=== PATIENT | male | born 1940 | race Caucasian/White ===

== ENCOUNTER → 2023-12-09 10:06 | Outpatient (REF) | payer MEDICARE, BC, SELFPAY | LOC: MRI 3T 10:06 | PROVIDERS: ATTENDING PHYSICIAN Internal Medicine Hematology & Oncology; FAMILY PHYSICIAN Family Medicine | DX: C34.32 Malignant neoplasm of lower lobe, left bronchus or lung (principal); R53.82 Chronic fatigue, unspecified | CPT/HCPCS: 70553; A9575 ==

== ENCOUNTER → 2023-12-10 08:30 | Outpatient (REF) | payer MEDICARE, BC, SELFPAY ==
[2023-12-10 09:07] VITALS: BP 151/76; BP_SYST 71
[2023-12-10] MEDS: ANCEF 10 IV (09:50)
[2023-12-10 11:01] VITALS: BP 147/75
== END ==
LOC: RADI 08:30
PROVIDERS: ATTENDING PHYSICIAN Internal Medicine Hematology & Oncology; FAMILY PHYSICIAN Family Medicine
DX: C34.32 Malignant neoplasm of lower lobe, left bronchus or lung (principal)
CPT/HCPCS: 36561; 76937; 77001; 99152; 99153; C1788

== ENCOUNTER → 2023-12-14 14:00 | Outpatient (REF) | payer MEDICARE, BC, SELFPAY ==
[2023-12-14 14:26] LABS: % Basophils 0.4 % (0-2); % Eosinophils 4.1 % (0-6); % Immature Granulocytes 0.3 % (0-0.5); % Lymphocytes 25.9 % (20.5-51.1); % Monocytes 7.7 % (1.7-9.3); % Neutrophils 61.6 % (42.2-75.2); Absolute Eosinophils 0.3 10^3/uL (0-0.7); Absolute Lymphocytes 1.8 10^3/uL (1.2-3.4); Absolute Monocytes 0.5 10^3/uL (0.1-0.6); Absolute Neutrophils 4.2 10^3/uL (1.4-6.5); Hematocrit 39.4 % (39.0-52.0); Hemoglobin 13.4 g/dL (13.0-18.0); Mean Corpuscular Hgb 31.4 pg (27.0-31.0); Mean Corpuscular Volume 92.3 fL (80.0-94.0); Mean Platelet Volume 10.4 fL (7.4-10.4); Nucleated Red Blood Cells % 0 % (-); Platelet Count 141 10^3/uL (130-400); Red Blood Cell Count 4.27 10^6/uL (4.70-6.10); White Blood Cell Count 6.8 10^3/uL (4.8-10.8)
[2023-12-14 14:38] LABS: ALT (SGPT) 21 U/L (0-50); AST (SGOT) 26 U/L (17-59); Albumin 4.2 g/dl (3.5-5.0); Alkaline Phosphatase 94 U/L (38-126); Blood Urea Nitrogen 26 mg/dl (9-20); Calcium 9.2 mg/dl (8.4-10.2); Carbon Dioxide 29 mmol/L (22-30); Chloride 103 mmol/L (98-107); Glucose 149 mg/dl (70-99); Potassium 4.8 mmol/L (3.5-5.1); Sodium 137 mmol/L (135-145); Total Protein 6.8 g/dl (6.3-8.2); eGFR > 60.00
== END ==
LOC: REG 14:00
PROVIDERS: ATTENDING PHYSICIAN Internal Medicine Hematology & Oncology; FAMILY PHYSICIAN Family Medicine
DX: C34.32 Malignant neoplasm of lower lobe, left bronchus or lung (principal); R53.82 Chronic fatigue, unspecified
CPT/HCPCS: 36415; 80053; 85025

== ENCOUNTER → 2024-01-25 15:52 | Outpatient (REF) | payer MEDICARE, BC, SELFPAY ==
[2024-01-25 12:35] LABS: % Basophils 0.7 % (0-2); % Eosinophils 1.8 % (0-6); % Immature Granulocytes 2.1 % (0-0.5); % Lymphocytes 30.3 % (20.5-51.1); % Monocytes 13.6 % (1.7-9.3); % Neutrophils 51.5 % (42.2-75.2); Absolute Eosinophils 0.1 10^3/uL (0-0.7); Absolute Immature Granulocytes 0.1 10^3/uL (0-0.05); Absolute Lymphocytes 1.3 10^3/uL (1.2-3.4); Absolute Monocytes 0.6 10^3/uL (0.1-0.6); Absolute Neutrophils 2.2 10^3/uL (1.4-6.5); Hematocrit 33.9 % (39.0-52.0); Hemoglobin 11.5 g/dL (13.0-18.0); Mean Corp Hgb Conc. 33.9 g/dL (33.0-37.0); Mean Corpuscular Volume 91.4 fL (80.0-94.0); Mean Platelet Volume 9.9 fL (7.4-10.4); Nucleated Red Blood Cells % 0 % (-); Platelet Count 182 10^3/uL (130-400); Red Blood Cell Count 3.71 10^6/uL (4.70-6.10); Red Cell Dist. Width 14.5 % (11.5-14.5); White Blood Cell Count 4.3 10^3/uL (4.8-10.8)
[2024-01-25 13:02] LABS: ALT (SGPT) 29 U/L (0-50); AST (SGOT) 26 U/L (17-59); Alkaline Phosphatase 116 U/L (38-126); Blood Urea Nitrogen 17 mg/dl (9-20); Calcium 9.1 mg/dl (8.4-10.2); Carbon Dioxide 25 mmol/L (22-30); Chloride 99 mmol/L (98-107); Glucose 226 mg/dl (70-99); Potassium 4.2 mmol/L (3.5-5.1); Sodium 132 mmol/L (135-145); Total Bilirubin 0.7 mg/dl (0.2-1.3); Total Protein 6.4 g/dl (6.3-8.2); eGFR > 60.00
== END ==
LOC: OIDL 15:52
PROVIDERS: ATTENDING PHYSICIAN Nurse Practitioner Adult Health
DX: C34.32 Malignant neoplasm of lower lobe, left bronchus or lung (principal)
CPT/HCPCS: 80053; 85025

== ENCOUNTER 2024-03-22 12:07 | Emergency (ER) | payer MEDICARE, BC, SELFPAY ==
[2024-03-22 12:21] VITALS: BP 116/48
--- NOTE | 2024-03-22 14:07 | ED.GENMED ---
Addendum entered and electronically signed by Estuardo Hairston PA-C 03/24/24 07:11:
Urine culture growing demonstrates greater than 100,000 colony-forming units of 2 strains of gram-negative bacilli. Patient placed on Keflex. Sensitivities pending
Original Note:
History of Present Illness
General
Chief Complaint: Anal/Rectal Problem
Source: patient
Exam Limitations: none
Time Seen by Provider: 03/22/24 13:40
Nursing documentation reviewed up to this point in time: agreed with
Travel History
Have you had any contact with someone who has COVID-19?: No
Do you have any symptoms of coronavirus? Fever > 100 degrees, chills, cough, shortness of breath, sore throat, loss of taste or smell, muscle aches, or headache?: No
History of Present Illness
History of Present Illness:
Patient to ED with complaint of rectal pain. Pain started over the weekend and continues to worsen. States he fells like there is a lump there. Using prep H without relief. Reports diarrhea yesterday. No BM today. Brought to ED by spouse for
eval.
Past History
Past History
ED Past Medical History: Cancer (Lung cancer), HTN, Hypercholesterolemia and NIDDM
ED Past Surgical History: Orthopedic and Other (Lung resection)
Social History
Tobacco: Non-smoker
Alcohol: Occasional
Drug: None
Personal:
Living: with family
Review of Systems
Review of Systems
Allergies reviewed?: Yes
All Other Systems: ROS reviewed and negative except as documented in HPI and ROS
Constitutional: Reports fatigue
EENT: Reports no symptoms
Respiratory: Reports no symptoms
Cardiac: Reports no symptoms
ABD/GI: Reports other (rectal pain)
: Reports no symptoms
Musculoskeletal: Reports no symptoms
Skin: Reports no symptoms
Neurological: Reports weakness (currently receiving chemo for lung CA)
Psychiatric: Reports no symptoms
Phy Exam
General Physical Exam
General Presentation: well appearing and no apparent distress
General age: appears stated age
General Skin: warm and dry
General Habitus: normal
General Mental: alert
Gastrointestinal Exam
Gastrointestinal Exam: normal bowel sounds, non tender, soft, no organomegaly, no pulsatile mass, non distended and no cva tenderness
Rectal Exam: normal external exam, normal sphincter tone, no stool and tender
Musculoskeletal Exam
Musculoskeletal Exam: full ROM and neuro vasc intact
Skin Exam
Skin Exam: normal color, warm/dry and no rash
Psychiatric Exam
Psychiatric Exam: normal mood/affect
Course
Orders/Labs/Results
Orders:
Orders
03/22/24 14:[address] [CT Pelvis With Iv Contrast] Urgent
Comment:
Reason For Exam: rectal pain
03/22/24 14:31
Complete Blood Count/With Diff Urgent
Comprehensive Metabolic Panel Urgent
03/22/24 18:09
Urinalysis Reflex To Culture Urgent
Date Specimen was Collected: 03/22/24
Time Specimen was Collected: 17:43
Urine Microscopic Reflex Cult Urgent
Urine Culture Urgent
AQUILES Source: U
Specimen Description:
Date Specimen was Collected: 03/22/24
Time Specimen was Collected: 17:43
03/22/24 18:33
Cephalexin Monohydrate [Keflex] 500 mg PO NOW STA
Abnormal Lab Results
03/22/24 03/22/24
14:31 18:09
WBC 31.3 H 10^3/uL
(4.8-10.8)
RBC 2.81 L 10^6/uL
(4.70-6.10)
Hgb 9.2 L g/dL
(13.0-18.0)
Hct 26.7 L %
(39.0-52.0)
MCV 95.0 H fL
(80.0-94.0)
MCH 32.7 H pg
(27.0-31.0)
RDW 17.2 H %
(11.5-14.5)
Plt Count 106 L 10^3/uL
(130-400)
MPV 10.5 H fL
(7.4-10.4)
Abs Immat Gran (auto) 1.5 H 10^3/uL
(0-0.05)
Absolute Neuts (auto) 27.2 H 10^3/uL
(1.4-6.5)
Absolute Monos (auto) 1.4 H 10^3/uL
(0.1-0.6)
Immature Gran % 4.8 H %
(0-0.5)
Neutrophils % 86.9 H %
(42.2-75.2)
Lymphocytes % 3.8 L %
(20.5-51.1)
Sodium 134 L mmol/L
(135-145)
Glucose 233 H mg/dl
(70-99)
Alkaline Phosphatase 218 H U/L
(38-126)
Total Protein 5.7 L g/dl
(6.3-8.2)
Ur Occult Blood Reflex 3+ A
(Negative)
Urine Nitrite (Reflex) Positive A
(Negative)
Leukocyte Esterase Rfl 2+ A
(Negative)
Urine RBC 7-10 A /HPF
(0-2)
Urine WBC (Reflex) 26-30 A /HPF
(0-5)
Urine Bacteria (Reflex) Many A
(Negative)
03/22/24 14:31
03/22/24 14:31
Vital Signs
Initial and Last Documented VS:
Initial Vital Signs
Temp Pulse Resp BP Pulse Ox
98.2 F 102 19 116/48 98
03/22/24 12:21 03/22/24 12:21 03/22/24 12:21 03/22/24 12:21 03/22/24 12:21
Last Documented Vital Signs
Temp Pulse Resp BP Pulse Ox
98.2 F 89 18 122/68 99
03/22/24 12:21 03/22/24 19:13 03/22/24 19:13 03/22/24 19:13 03/22/24 19:13
*Radiology
Radiology exam reviewed: radiology read reviewed
*Pulse Oximetry
Patient hypoxic: no
*Critical Care Note
Total Time (30-74mins, 75-104mins- exclusive of procedures): Not Applicable
ED Attending Note
-
Portions of this chart may have been created with voice recognition software.� Occasional wrong word or��sound alike� substitutions may have occurred due to the inherent limitations of voice recognition software.
Discharge Plan
Departure
Patient Disposition: Home (Routine Discharge)
Date of Disposition: 03/22/24
Time of Disposition: 18:29
Patient with high blood pressure during this ER visit?: No
Condition: Good
Covid-19: Not Applicable
Discharge Problem:
Pain, rectal
Instructions: Diarrhea and Traveler's Diarrhea, Adult (DC), Hemorrhoids (DC)
Prescriptions:
New
hydrocortisone acetate [Anusol-HC] 25 mg suppository
25 mg [place] DAILY PRN (Reason: hemorrhoids) Qty: 12 0RF
cephalexin 500 mg capsule
500 mg PO BID 7 Days Qty: 14 0RF
No Action
glyburide 2.5 MG tablet
2.5 mg PO DAILY
selenium 200 MCG tablet
200 mcg PO DAILY
doxazosin 4 MG tablet
4 mg PO DAILY
rosuvastatin 10 MG tablet
10 mg PO DAILY
Centrum Men 1 EACH tablet
1 ea PO DAILY
lisinopril 5 MG tablet
5 mg PO DAILY
PreserVision AREDS-2 250-90-40-1 mg Capsule
1 tab PO DAILY
prochlorperazine maleate [Compazine] 10 mg Tablet
10 mg PO BID PRN (Reason: nausea)
ondansetron 8 mg Tablet,Disintegrating
8 mg PO Q12H PRN (Reason: nausea)
selenium 200 mcg Tablet
200 mcg PO DAILY
dexamethasone 4 mg Tablet
4 mg PO DAILY
osimertinib 80 mg Tablet
80 mg PO DAILY
Referrals:
Mendel Wilkins DO [Family Provider] - Follow up in 2-3 days
Interventions
Interventions:
*Risk Screen - Suicide Last Done: 03/22/24 14:45
*General Assessment Last Done: 03/22/24 14:45
*Neglect/Abuse Screening Last Done: 03/22/24 14:45
*ED COVID-19 Vaccine History Last Done: 03/22/24 12:22
*Nursing Disposition Last Done: 03/22/24 19:27
AX-Njhazg-Afshvjenel Assessment Last Done: 03/22/24 14:45
ED-Skin Assessment Last Done: 03/22/24 14:45
Discharge Date and Time
Discharge Date/Time: 03/22/24 19:28
Print Language: ARMENIAN
[2024-03-22 14:45] LABS: % Immature Granulocytes 4.8 % (0-0.5); % Lymphocytes 3.8 % (20.5-51.1); % Monocytes 4.5 % (1.7-9.3); % Neutrophils 86.9 % (42.2-75.2); Absolute Immature Granulocytes 1.5 10^3/uL (0-0.05); Absolute Lymphocytes 1.2 10^3/uL (1.2-3.4); Absolute Monocytes 1.4 10^3/uL (0.1-0.6); Absolute Neutrophils 27.2 10^3/uL (1.4-6.5); Hematocrit 26.7 % (39.0-52.0); Hemoglobin 9.2 g/dL (13.0-18.0); Mean Corp Hgb Conc. 34.5 g/dL (33.0-37.0); Mean Corpuscular Hgb 32.7 pg (27.0-31.0); Mean Platelet Volume 10.5 fL (7.4-10.4); Nucleated Red Blood Cells % 0 % (-); Platelet Count 106 10^3/uL (130-400); Red Blood Cell Count 2.81 10^6/uL (4.70-6.10); Red Cell Dist. Width 17.2 % (11.5-14.5); White Blood Cell Count 31.3 10^3/uL (4.8-10.8)
[2024-03-22 14:58] LABS: ALT (SGPT) 33 U/L (0-50); AST (SGOT) 55 U/L (17-59); Albumin 3.5 g/dl (3.5-5.0); Alkaline Phosphatase 218 U/L (38-126); Blood Urea Nitrogen 18 mg/dl (9-20); Calcium 8.9 mg/dl (8.4-10.2); Carbon Dioxide 28 mmol/L (22-30); Chloride 98 mmol/L (98-107); Glucose 233 mg/dl (70-99); Potassium 3.5 mmol/L (3.5-5.1); Sodium 134 mmol/L (135-145); Total Bilirubin 0.9 mg/dl (0.2-1.3); Total Protein 5.7 g/dl (6.3-8.2); eGFR > 60.00
[2024-03-22 18:18] LABS: Urine Albumin Trace (Neg - Trace); Urine Bilirubin Negative (Negative); Urine Character Slightly Cloudy (Clear); Urine Color Yellow; Urine Glucose Negative (Negative); Urine Ketone Negative (Negative); Urine Leukocyte 2+ (Negative); Urine Nitrite Positive (Negative); Urine Occult Blood 3+ (Negative); Urine Specific Gravity 1.015 (<1.030); Urine Urobilinogen Negative (Neg - 1+)
[2024-03-22 18:26] LABS: Urine Bacteria Many (Negative); Urine White Cell 26-30 /HPF (0-5)
[2024-03-22] MEDS: KEFLEX 500 MG PO (18:51)
[2024-03-22 19:13] VITALS: BP 122/68
== END 2024-03-22 19:28 | disposition home or self-care (01) ==
LOC: EMR 12:07
PROVIDERS: Nurse Practitioner; EMERGENCY PHYSICIAN Emergency Medicine; FAMILY PHYSICIAN Family Medicine
DX: K62.89 Other specified diseases of anus and rectum (principal); R19.7 Diarrhea, unspecified; I10 Essential (primary) hypertension; E78.00 Pure hypercholesterolemia, unspecified; E11.9 Type 2 diabetes mellitus without complications; Z85.118 Personal history of other malignant neoplasm of bronchus and lung; Z96.642 Presence of left artificial hip joint
CPT/HCPCS: 99284; 72193; 80053; 81003; 81015; 85025; 87077; 87086; 87186; Q9967

== ENCOUNTER 2024-04-03 18:45 | Emergency (ER) | payer MEDICARE, BC, SELFPAY ==
[2024-04-03 19:04] VITALS: BP 90/54
[2024-04-03 19:58] VITALS: BMI 27.8
--- NOTE | 2024-04-03 19:59 | EDRN ---
Pt says he has not had a BM for 3-4 days 'My rear end is killing me.' Pt was in this ED 10 days ago with similar symptoms diagnosed with hemorrhoids. Pt says he is urinating occasionally. Pt took miralax and senokot for constipation past 3 days
with no relief. No abd pain, n/v, fever/chills/cough, cp, sob. Pt says he rarely has constipation. Pt dues for chemo on Thursday, gets it every 3 weeks.
--- NOTE | 2024-04-03 20:14 | EDRN ---
Pt adds he had a Fleets enema this morning however it came right out 'the water just came out.'
--- NOTE | 2024-04-03 20:36 | ED.GENMED ---
History of Present Illness
General
Chief Complaint: Bowel Problem
Source: patient
Exam Limitations: none
Time Seen by Provider: 04/03/24 20:24
Nursing documentation reviewed up to this point in time: agreed with
Travel History
Have you had any contact with someone who has COVID-19?: No
Do you have any symptoms of coronavirus? Fever > 100 degrees, chills, cough, shortness of breath, sore throat, loss of taste or smell, muscle aches, or headache?: No
History of Present Illness
History of Present Illness:
83 yr old male currently being treated for right sided lung cancer due for 6th treatment of chemo/immunotherapy on presents for constipation /rectal pain. Patient has not had a bowel movement in 3 days. also reports he has a
history of recent urinary issues and at times does not feel like he is emptying his bladder completely. reports he was seen here March 22 for rectal pain diagnosed with possible hemorrhoid. He did have some diarrhea at that time. Urine culture
however that time also demonstrated UTI patient was placed on Keflex. mentions that patient has had Nolan catheter several weeks ago because of urinary issues and at times still does not feel that he is fully emptying his bladder.
Did try a fleets enema today but reports the fluid right came right back out of his rectum. He denies any nausea vomiting he does have a good appetite and has not eaten well over the past 1 day because of constipation.
Past History
Past History
ED Past Medical History: Cancer (Lung cancer), HTN, Hypercholesterolemia and NIDDM
ED Past Surgical History: Orthopedic and Other (Lung resection)
Social History
Tobacco: Non-smoker
Alcohol: Occasional
Drug: None
Personal:
Living: with family
Phy Exam
General Physical Exam
General Presentation: well appearing
General age: appears stated age
General Skin: warm and dry
General Habitus: elderly
General Mental: alert
General Hydration: appears well hydrated
Gastrointestinal Exam
Gastrointestinal Exam: non tender, soft and other (no external hemorrhoids on rectal exam no stool in vault no palpable internal hemorrhoids)
Neurological Exam
Neurological Exam: alert and oriented x3
Musculoskeletal Exam
Musculoskeletal Exam: full ROM
Skin Exam
Skin Exam: normal color and warm/dry
Psychiatric Exam
Psychiatric Exam: normal mood/affect
Course
Orders/Labs/Results
Orders:
Orders
04/03/24 20:31
Obstruct Series W/PA Chest [CR Obstruct Series W/pa Chest] Urgent
Comment:
Reason For Exam: constipated
04/03/24 20:36
Bladder Scan- Treatment ONCE
Vital Signs
Initial and Last Documented VS:
Initial Vital Signs
Temp Pulse Resp BP Pulse Ox
98.1 F 104 24 90/54 98
04/03/24 19:04 04/03/24 19:04 04/03/24 19:04 04/03/24 19:04 04/03/24 19:04
Last Documented Vital Signs
Temp Pulse Resp BP Pulse Ox
98.5 F 85 24 128/67 97
04/03/24 21:49 04/03/24 21:49 04/03/24 19:04 04/03/24 21:49 04/03/24 21:49
Baker Bench consulted with Physician
Baker Bench consulted with physician?: Yes
Name of Physician Consulted: Gerardo
MDM/Problems Addressed
MDM/Problems Addressed:
Patient is a 83-year-old male with history of lung cancer currently being treated with chemo and immunotherapy complaining constipation for the past several days and intermittent rectal pain. He just started MiraLAX per he denies any nausea
vomiting he had urinary retention last week but denies any urinary frequency urgency or dysuria. At times he has a feeling like he has some retention but this is not new. He has had intermittent prostate issues. He is followed by Dr. Reza of
urology. He had a normal clean urine by urology last week. reports he did have rectal pain with last chemo several years ago with previous lung cancer. Patient presents in no acute distress abdomen soft nontender moderate stool burden on
x-ray. Patient was monitored here he had no rectal pain here in the ER and has been asymptomatic. On exam there is no obvious hemorrhoids there is no stool in the rectum. No pain with rectal exam. patient was offered enema but wishes to hold off
as he is feeling better will have patient continue MiraLAX reviewed high-fiber diet. Patient has an appoint with urology next week will have call tomorrow to to try and get it appointment.
He is nontoxic stable for discharge home with outpatient follow-up.
Chronic conditions affecting care:
lung cancer currently getting chemo/immunotherapy
*Radiology
Radiology exam reviewed: radiology read reviewed
*Pulse Oximetry
Patient hypoxic: no
*Critical Care Note
Total Time (30-74mins, 75-104mins- exclusive of procedures): Not Applicable
ED Attending Note
-
Portions of this chart may have been created with voice recognition software.� Occasional wrong word or��sound alike� substitutions may have occurred due to the inherent limitations of voice recognition software.
Discharge Plan
Departure
Patient Disposition: Home (Routine Discharge)
Date of Disposition: 04/03/24
Time of Disposition: 22:45
Patient with high blood pressure during this ER visit?: No
Covid-19: Not Applicable
Discharge Problem:
Acute constipation
Instructions: Constipation, Adult (DC)
Prescriptions:
No Action
glyburide 2.5 MG tablet
2.5 mg PO DAILY
doxazosin 4 MG tablet
4 mg PO DAILY
rosuvastatin 10 MG tablet
10 mg PO DAILY
Centrum Men 1 EACH tablet
1 ea PO DAILY
lisinopril 5 MG tablet
5 mg PO DAILY
PreserVision AREDS-2 250-90-40-1 mg Capsule
1 tab PO DAILY
prochlorperazine maleate [Compazine] 10 mg Tablet
10 mg PO BID PRN (Reason: nausea)
ondansetron 8 mg Tablet,Disintegrating
8 mg PO Q12H PRN (Reason: nausea)
selenium 200 mcg Tablet
200 mcg PO DAILY
dexamethasone 4 mg Tablet
4 mg PO DAILY
hydrocortisone acetate [Anusol-HC] 25 mg suppository
25 mg TN DAILY PRN (Reason: hemorrhoids) Qty: 12 0RF
cephalexin 500 mg capsule
500 mg PO BID 7 Days Qty: 14 0RF
tamsulosin 0.4 mg Capsule
0.4 mg PO DAILY
Keytruda
IV .[id number]
Patient Comments:
does not know dosage
pemetrexed
IV .[id number]
Patient Comments:
does not know mg
Referrals:
Mendel Wilkins DO [Family Provider] -
Evaristo Reza MD [Active] -
Activity Restrictions/Additional Instructions:
Follow-up with family doctor oncologist as well as urology. As discussed increase water intake increase high fiber intake fresh fruits and vegetables grapes apples oatmeal high-fiber cereals continue MiraLAX. Avoid constipating foods such as
breads Pasta rice and bananas. Return to the ER if any worsening of symptoms of increasing abdominal pain nausea vomiting fever chills urinary frequency urgency, burning
Interventions
Interventions:
*Risk Screen - Suicide Last Done: 04/03/24 19:04
*General Assessment Last Done: 04/03/24 19:58
*Neglect/Abuse Screening Last Done: 04/03/24 19:04
ED- Fall Risk Assessment Last Done: 04/03/24 20:08
*ED COVID-19 Vaccine History Last Done: 04/03/24 19:38
MW-Eolldk-Pplzvrhptu Assessment Last Done: 04/03/24 20:17
Discharge Date and Time
Print Language: [place]CI[place]
[2024-04-03 21:49] VITALS: BP 128/67
[2024-04-03 22:53] VITALS: BP 120/74
== END 2024-04-03 22:54 | disposition home or self-care (01) ==
LOC: EMR 18:45
PROVIDERS: EMERGENCY PHYSICIAN Student in an Organized Health Care Education/Training Program; FAMILY PHYSICIAN Family Medicine
DX: K59.09 Other constipation (principal); I10 Essential (primary) hypertension; E78.00 Pure hypercholesterolemia, unspecified; E11.9 Type 2 diabetes mellitus without complications; Z85.118 Personal history of other malignant neoplasm of bronchus and lung
CPT/HCPCS: 99283; 74022

== ENCOUNTER → 2024-04-09 13:36 | Outpatient (REF) | payer MEDICARE, BC, SELFPAY | LOC: MRI 13:36 | PROVIDERS: ATTENDING PHYSICIAN Internal Medicine Hematology & Oncology; FAMILY PHYSICIAN Family Medicine | DX: C34.32 Malignant neoplasm of lower lobe, left bronchus or lung (principal); R53.82 Chronic fatigue, unspecified | CPT/HCPCS: 72156; A9575 ==

== ENCOUNTER → 2024-05-03 07:58 | Outpatient (REF) | payer MEDICARE, BC, SELFPAY | LOC: MRI 07:58 | PROVIDERS: ATTENDING PHYSICIAN Internal Medicine Hematology & Oncology; FAMILY PHYSICIAN Family Medicine; REFERRING PHYSICIAN Specialist | DX: C34.32 Malignant neoplasm of lower lobe, left bronchus or lung (principal); R53.82 Chronic fatigue, unspecified | CPT/HCPCS: 73723; A9575 ==

== ENCOUNTER → 2024-05-16 10:48 | Outpatient (REF) | payer MEDICARE, BC, SELFPAY ==
[2024-05-16 11:45] LABS: % Basophils 0.6 % (0-2); % Eosinophils 3.4 % (0-6); % Immature Granulocytes 0.3 % (0-0.5); % Lymphocytes 17.9 % (20.5-51.1); % Monocytes 9.4 % (1.7-9.3); % Neutrophils 68.4 % (42.2-75.2); Absolute Eosinophils 0.2 10^3/uL (0-0.7); Absolute Lymphocytes 1.2 10^3/uL (1.2-3.4); Absolute Monocytes 0.6 10^3/uL (0.1-0.6); Absolute Neutrophils 4.4 10^3/uL (1.4-6.5); Hematocrit 31.3 % (39.0-52.0); Hemoglobin 10.4 g/dL (13.0-18.0); Mean Corp Hgb Conc. 33.2 g/dL (33.0-37.0); Mean Corpuscular Hgb 30.4 pg (27.0-31.0); Mean Corpuscular Volume 91.5 fL (80.0-94.0); Mean Platelet Volume 9.8 fL (7.4-10.4); Nucleated Red Blood Cells % 0 % (-); Platelet Count 255 10^3/uL (130-400); Red Blood Cell Count 3.42 10^6/uL (4.70-6.10); White Blood Cell Count 6.5 10^3/uL (4.8-10.8)
[2024-05-16 12:08] LABS: ALT (SGPT) 139 U/L (0-50); AST (SGOT) 70 U/L (17-59); Albumin 3.7 g/dl (3.5-5.0); Alkaline Phosphatase 288 U/L (38-126); Blood Urea Nitrogen 22 mg/dl (9-20); Calcium 9.8 mg/dl (8.4-10.2); Carbon Dioxide 29 mmol/L (22-30); Chloride 93 mmol/L (98-107); Glucose 258 mg/dl (70-99); Sodium 132 mmol/L (135-145); Total Bilirubin 0.7 mg/dl (0.2-1.3); Total Protein 6.3 g/dl (6.3-8.2); eGFR > 60.00
[2024-05-16 12:26] LABS: Free T3 2.98 pg/ml (2.77-5.27); Free T4 1.42 ng/dl (0.78-2.19)
[2024-05-16 12:39] LABS: TSH 2.66 uIU/ml (0.47-4.68)
== END ==
LOC: REG 10:48
PROVIDERS: ATTENDING PHYSICIAN Internal Medicine Hematology & Oncology; FAMILY PHYSICIAN Family Medicine
DX: C34.32 Malignant neoplasm of lower lobe, left bronchus or lung (principal); R53.82 Chronic fatigue, unspecified
CPT/HCPCS: 36415; 80053; 84439; 84443; 84481; 85025

== ENCOUNTER → 2024-06-01 10:46 | Outpatient (REF) | payer MEDICARE, BC, SELFPAY ==
[2024-06-01 12:07] LABS: % Basophils 0.9 % (0-2); % Eosinophils 2.8 % (0-6); % Immature Granulocytes 0.1 % (0-0.5); % Lymphocytes 16.6 % (20.5-51.1); % Monocytes 8.8 % (1.7-9.3); % Neutrophils 70.8 % (42.2-75.2); Absolute Basophils 0.1 10^3/uL (0-0.2); Absolute Eosinophils 0.2 10^3/uL (0-0.7); Absolute Lymphocytes 1.1 10^3/uL (1.2-3.4); Absolute Monocytes 0.6 10^3/uL (0.1-0.6); Absolute Neutrophils 4.8 10^3/uL (1.4-6.5); Hematocrit 31.4 % (39.0-52.0); Hemoglobin 10.1 g/dL (13.0-18.0); Mean Corp Hgb Conc. 32.2 g/dL (33.0-37.0); Mean Corpuscular Hgb 28.7 pg (27.0-31.0); Mean Corpuscular Volume 89.2 fL (80.0-94.0); Mean Platelet Volume 9.5 fL (7.4-10.4); Nucleated Red Blood Cells % 0 % (-); Platelet Count 289 10^3/uL (130-400); Red Blood Cell Count 3.52 10^6/uL (4.70-6.10); Red Cell Dist. Width 15.6 % (11.5-14.5); White Blood Cell Count 6.8 10^3/uL (4.8-10.8)
[2024-06-01 13:55] LABS: ALT (SGPT) 168 U/L (0-50); AST (SGOT) 85 U/L (17-59); Albumin 3.4 g/dl (3.5-5.0); Alkaline Phosphatase 215 U/L (38-126); Blood Urea Nitrogen 20 mg/dl (9-20); Calcium 9.2 mg/dl (8.4-10.2); Carbon Dioxide 24 mmol/L (22-30); Chloride 93 mmol/L (98-107); Glucose 209 mg/dl (70-99); Potassium 4.1 mmol/L (3.5-5.1); Sodium 128 mmol/L (135-145); Total Bilirubin 0.7 mg/dl (0.2-1.3); Total Protein 6.2 g/dl (6.3-8.2); eGFR > 60.00
[2024-06-01 14:16] LABS: Free T4 1.52 ng/dl (0.78-2.19)
[2024-06-01 14:24] LABS: Cortisol, Random 16.6 ug/dl
[2024-06-01 15:04] LABS: TSH 2.14 uIU/ml (0.47-4.68)
[2024-06-03 13:16] LABS: Total T3 (Sendout) 103 ng/dL (80-200)
== END ==
LOC: REG 10:46
PROVIDERS: ATTENDING PHYSICIAN Internal Medicine Hematology & Oncology; FAMILY PHYSICIAN Family Medicine; REFERRING PHYSICIAN Nurse Practitioner Adult Health
DX: C34.32 Malignant neoplasm of lower lobe, left bronchus or lung (principal); R53.82 Chronic fatigue, unspecified; G89.3 Neoplasm related pain (acute) (chronic)
CPT/HCPCS: 36415; 80053; 82533; 84439; 84443; 84480; 85025

== ENCOUNTER 2024-06-07 15:01 | Emergency (ER) | payer MEDICARE, BC, SELFPAY ==
[2024-06-07] VITALS (13 sets, daily range): BP systolic 113–139; BP diastolic 55–79; BMI 25.7
[2024-06-07 15:51] LABS: % Basophils 0.7 % (0-2); % Eosinophils 1.2 % (0-6); % Immature Granulocytes 0.4 % (0-0.5); % Lymphocytes 22.4 % (20.5-51.1); % Monocytes 8.7 % (1.7-9.3); % Neutrophils 66.6 % (42.2-75.2); Absolute Eosinophils 0.1 10^3/uL (0-0.7); Absolute Lymphocytes 1.3 10^3/uL (1.2-3.4); Absolute Monocytes 0.5 10^3/uL (0.1-0.6); Absolute Neutrophils 3.8 10^3/uL (1.4-6.5); Hematocrit 28.7 % (39.0-52.0); Hemoglobin 9.6 g/dL (13.0-18.0); Mean Corp Hgb Conc. 33.4 g/dL (33.0-37.0); Mean Corpuscular Hgb 27.9 pg (27.0-31.0); Mean Corpuscular Volume 83.4 fL (80.0-94.0); Mean Platelet Volume 9.4 fL (7.4-10.4); Nucleated Red Blood Cells % 0 % (-); Platelet Count 285 10^3/uL (130-400); Red Blood Cell Count 3.44 10^6/uL (4.70-6.10); Red Cell Dist. Width 15.8 % (11.5-14.5); White Blood Cell Count 5.7 10^3/uL (4.8-10.8)
--- NOTE | 2024-06-07 15:56 | ED.GENMED ---
History of Present Illness
General
Chief Complaint: Heart Rate Problem
Source: patient
Exam Limitations: none
Time Seen by Provider: 06/07/24 15:55
Nursing documentation reviewed up to this point in time: agreed with
History of Present Illness
History of Present Illness:
83-year-old male with history of HTN, HLD, urinary retention with Nolan catheter in place, NIDDM, metastatic lung and skin cancer with left lower lobe lung resection 09/2021 and a TURP 02/13/2022 presents from [facility] where he was
receiving Immunotherapy and when they listened to his heart thought he was in a fib so sent here.
Pt denies CP, SOB, denies feeling palpitation. Denies dizziness or lightheadedness.
Past History
Past History
ED Past Medical History: Cancer (Lung cancer), HTN, Hypercholesterolemia and NIDDM
ED Past Surgical History: Orthopedic and Other (Lung resection)
Social History
Tobacco: Non-smoker
Alcohol: Occasional
Drug: None
Personal:
Living: with family
Review of Systems
Review of Systems
Allergies reviewed?: Yes
All Other Systems: ROS reviewed and negative except as documented in HPI and ROS
Constitutional: Reports fatigue; Denies fever
Respiratory: Denies cough or trouble breathing
Cardiac: Denies chest pain
ABD/GI: Reports anorexia; Denies abdominal pain, nausea, vomiting or diarrhea
: Denies dysuria, difficulty voiding or urgency
Musculoskeletal: Reports no symptoms
Skin: Reports no symptoms
Neurological: Reports no symptoms
Phy Exam
Physical Exam
Physical Exam:
GENERAL: No acute distress. A&Ox3.
CONSTITUTIONAL: Afebrile.
EYES: clear, conjunctivae normal
ENMT: moist mucus membranes, Pharynx nl
RESPIRATORY: Regular respirations, nonlabored, lungs clear.
CARDIOVASCULAR: Regular rate and rhythm HR 120, no murmurs, no rubs.
GI: Soft, nontender, normal BS
MUSCULOSKELETAL: Moves with ease. Well perfused.
SKIN: Warm, dry, pink
PSYCH: Normal mood and affect. Well kept, interactive and appropriate
NEUROLOGIC: Awake, alert and oriented. No focal neurological deficits
Course
Orders/Labs/Results
Orders:
Orders
06/07/24 15:07
ECG [Electrocardiogram (*1)] Urgent
Reason for Study: Tachycardia
EKG- Treatment ONCE
06/07/24 15:34
CMP [Comprehensive Metabolic Panel] Urgent
Complete Blood Count/With Diff Urgent
TSH Reflex To Free T4 Urgent
06/07/24 16:00
Electrocardiogram (*1) Urgent
Reason for Study: Tachycardia
EKG- Treatment ONCE
06/07/24 16:39
Metoprolol [Lopressor] 5 mg IV NOW STA
06/07/24 17:43
Troponin I Urgent
Abnormal Lab Results
06/07/24
15:34
RBC 3.44 L 10^6/uL
(4.70-6.10)
Hgb 9.6 L g/dL
(13.0-18.0)
Hct 28.7 L %
(39.0-52.0)
RDW 15.8 H %
(11.5-14.5)
Sodium 130 L mmol/L
(135-145)
Chloride 94 L mmol/L
(98-107)
Creatinine 0.6 L mg/dL
(0.7-1.3)
Glucose 267 H mg/dl
(70-99)
AST 101 H U/L
(17-59)
ALT 167 H U/L
(0-50)
Alkaline Phosphatase 203 H U/L
(38-126)
Total Protein 6.2 L g/dl
(6.3-8.2)
06/07/24 15:34
06/07/24 15:34
Vital Signs
Initial and Last Documented VS:
Initial Vital Signs
Temp Pulse Resp BP
97.9 F 125 20 113/55
06/07/24 15:05 06/07/24 15:05 06/07/24 15:05 06/07/24 15:05
Last Documented Vital Signs
Temp Pulse Resp BP Pulse Ox
97.9 F 103 16 134/73 99
06/07/24 15:05 06/07/24 19:30 06/07/24 19:15 06/07/24 19:30 06/07/24 18:00
MDM/Problems Addressed
Differential Diagnosis Includes:
Afib, sinus tach, [place], thyroid disorder
MDM/Problems Addressed:
83-year-old male with history of HTN, HLD, urinary retention with Nolan catheter in place, NIDDM, metastatic lung and skin cancer with left lower lobe lung resection 09/2021 and a TURP 02/13/2022 presents from [facility] where he was
receiving Immunotherapy and when they listened to his heart thought he was in a fib so sent here.
Pt denies CP, SOB, denies feeling palpitation. Denies dizziness or lightheadedness.
EKG: Sinus tach (?MAT) heart rate 147
4:00 PM: Heart rate on monitor now NSR, rate 80's-105 repeat EKG done: Sinus rhythm w PACs
CBC with no clinically significant abnormality
CMP with no clinically significant abnormality (abnormal numbers are at his baseline)
4:30 p.m.
After Lopressor HR 70's NSR w PACs
Troponin:WNL
TSH: WNL
Chronic conditions affecting care: DM, HTN, Immunosuppressed and Cancer
*EKG
EKG Intrepretation Date: 06/07/24
Interpretation: abnormal
Rate: tachycardiac
Rhythm: a-fib
Rush: normal axis
QRS Pattern: normal QRS
Ischemia: no ischemia
*Critical Care Note
Total Time (30-74mins, 75-104mins- exclusive of procedures): Not Applicable
ED Attending Note
-
Portions of this chart may have been created with voice recognition software.� Occasional wrong word or��sound alike� substitutions may have occurred due to the inherent limitations of voice recognition software.
Discharge Plan
Departure
Patient Disposition: Home (Routine Discharge)
Date of Disposition: 06/07/24
Time of Disposition: 18:41
Patient with high blood pressure during this ER visit?: No
Condition: Good
Discharge Problem:
Atrial tachycardia
Instructions: Tachycardia
Prescriptions:
New
metoprolol tartrate [Lopressor] 50 mg tablet
50 mg PO BID Qty: 30 0RF
No Action
glyburide 2.5 MG tablet
2.5 mg PO DAILY
doxazosin 4 MG tablet
4 mg PO DAILY
rosuvastatin 10 MG tablet
10 mg PO DAILY
Centrum Men 1 EACH tablet
1 ea PO DAILY
lisinopril 5 MG tablet
5 mg PO DAILY
PreserVision AREDS-2 250-90-40-1 mg Capsule
1 tab PO DAILY
prochlorperazine maleate [Compazine] 10 mg Tablet
10 mg PO BID PRN (Reason: nausea)
ondansetron 8 mg Tablet,Disintegrating
8 mg PO Q12H PRN (Reason: nausea)
selenium 200 mcg Tablet
200 mcg PO DAILY
dexamethasone 4 mg Tablet
4 mg PO DAILY
hydrocortisone acetate [Anusol-HC] 25 mg suppository
25 mg TN DAILY PRN (Reason: hemorrhoids) Qty: 12 0RF
cephalexin 500 mg capsule
500 mg PO BID 7 Days Qty: 14 0RF
tamsulosin 0.4 mg Capsule
0.4 mg PO DAILY
Keytruda
IV .[id number]
Patient Comments:
does not know dosage
pemetrexed
IV .[id number]
Patient Comments:
does not know mg
Referrals:
Mendel Wilkins DO [Family Provider] -
Karen Canchola MD [Active] - Call in 1-3 days for appt
Activity Restrictions/Additional Instructions:
As we discussed, call the cardiology office tomorrow and make next available appointment.
I sent a prescription to your pharmacy for 15 days worth of the Lopressor(metoprolol) to take 50 mg twice a day
Return here immediately for feeling chest pain, shortness of breath, lightheaded or dizzy or feeling worse in any way
Notify your other doctors of today's visit.
Interventions
Interventions:
*Risk Screen - Suicide Last Done: 06/07/24 16:30
*General Assessment Last Done: 06/07/24 15:28
*Neglect/Abuse Screening Last Done: 06/07/24 16:30
ED- Fall Risk Assessment Last Done: 06/07/24 15:28
*ED COVID-19 Vaccine History Last Done: 06/07/24 15:28
*Nursing Disposition Last Done: 06/07/24 19:49
ED- Cardiac Assessment Last Done: 06/07/24 15:28
ED- Pulmonary Assessment Last Done: 06/07/24 15:28
Discharge Date and Time
Discharge Date/Time: 06/07/24 19:50
Print Language: MAORI
[2024-06-07 16:12] LABS: ALT (SGPT) 167 U/L (0-50); AST (SGOT) 101 U/L (17-59); Albumin 3.5 g/dl (3.5-5.0); Alkaline Phosphatase 203 U/L (38-126); Blood Urea Nitrogen 20 mg/dl (9-20); Calcium 9.3 mg/dl (8.4-10.2); Carbon Dioxide 24 mmol/L (22-30); Chloride 94 mmol/L (98-107); Estimated Creatinine Clearance 92 ml/min; Glucose 267 mg/dl (70-99); Potassium 3.7 mmol/L (3.5-5.1); Sodium 130 mmol/L (135-145); Total Bilirubin 0.5 mg/dl (0.2-1.3); Total Protein 6.2 g/dl (6.3-8.2); eGFR > 60.00
[2024-06-07] MEDS: LOPRESSOR 5 MG IV (17:14)
[2024-06-07 19:38] LABS: TSH Reflex To Free T4 1.62 uIU/ml (0.47-4.68)
== END 2024-06-07 19:50 | disposition home or self-care (01) ==
LOC: EMR 15:01
PROVIDERS: Registered Nurse; EMERGENCY PHYSICIAN Emergency Medicine; FAMILY PHYSICIAN Family Medicine
DX: I47.19 Other supraventricular tachycardia (principal); I10 Essential (primary) hypertension; E78.00 Pure hypercholesterolemia, unspecified; E11.9 Type 2 diabetes mellitus without complications; D84.81 Immunodeficiency due to conditions classified elsewhere; I48.91 Unspecified atrial fibrillation; Z85.118 Personal history of other malignant neoplasm of bronchus and lung; Z85.828 Personal history of other malignant neoplasm of skin
CPT/HCPCS: 99283; 96374; 80053; 84443; 84484; 85025; 93005

== ENCOUNTER → 2024-07-01 12:50 | Outpatient (REF) | payer MEDICARE, BC, SELFPAY | LOC: RCS 12:50 | PROVIDERS: ATTENDING PHYSICIAN Internal Medicine Cardiovascular Disease; FAMILY PHYSICIAN Family Medicine | DX: R00.0 Tachycardia, unspecified (principal); I10 Essential (primary) hypertension | CPT/HCPCS: 93306 ==

== ENCOUNTER → 2024-07-01 15:58 | Outpatient (REF) | payer MEDICARE, BC, SELFPAY ==
[2024-07-01 14:53] LABS: % Basophils 0.2 % (0-2); % Eosinophils 0.1 % (0-6); % Immature Granulocytes 0.5 % (0-0.5); % Lymphocytes 7.6 % (20.5-51.1); % Monocytes 4.7 % (1.7-9.3); % Neutrophils 86.9 % (42.2-75.2); Absolute Immature Granulocytes 0.1 10^3/uL (0-0.05); Absolute Lymphocytes 0.9 10^3/uL (1.2-3.4); Absolute Monocytes 0.6 10^3/uL (0.1-0.6); Absolute Neutrophils 10.1 10^3/uL (1.4-6.5); Hematocrit 31.7 % (39.0-52.0); Hemoglobin 10.3 g/dL (13.0-18.0); Mean Corp Hgb Conc. 32.5 g/dL (33.0-37.0); Mean Corpuscular Hgb 26.8 pg (27.0-31.0); Mean Corpuscular Volume 82.3 fL (80.0-94.0); Mean Platelet Volume 9.9 fL (7.4-10.4); Nucleated Red Blood Cells % 0 % (-); Platelet Count 253 10^3/uL (130-400); Red Blood Cell Count 3.85 10^6/uL (4.70-6.10); Red Cell Dist. Width 17.6 % (11.5-14.5); White Blood Cell Count 11.7 10^3/uL (4.8-10.8)
[2024-07-01 15:05] LABS: ALT (SGPT) 131 U/L (0-50); AST (SGOT) 62 U/L (17-59); Albumin 3.4 g/dl (3.5-5.0); Alkaline Phosphatase 145 U/L (38-126); Blood Urea Nitrogen 24 mg/dl (9-20); Calcium 9.3 mg/dl (8.4-10.2); Carbon Dioxide 29 mmol/L (22-30); Chloride 91 mmol/L (98-107); Direct Bilirubin 0.3 mg/dl (0.0-0.4); Glucose 199 mg/dl (70-99); Phosphorus 2.8 mg/dl (2.5-4.5); Potassium 4.2 mmol/L (3.5-5.1); Sodium 132 mmol/L (135-145); Total Protein 6.1 g/dl (6.3-8.2); eGFR > 60.00
== END ==
LOC: OIDL 15:58
PROVIDERS: ATTENDING PHYSICIAN Internal Medicine Hematology & Oncology
DX: C34.32 Malignant neoplasm of lower lobe, left bronchus or lung (principal)
CPT/HCPCS: 80053; 82248; 84100; 85025

== ENCOUNTER 2024-07-11 16:30 | Inpatient (IN) | payer MEDICARE, BC, SELFPAY ==
[2024-07-11] VITALS (30 sets, daily range): BP systolic 93–150; BP diastolic 52–87; PULSE 98–124; BMI 23.1
--- NOTE | 2024-07-11 11:27 | ED.GENMED ---
History of Present Illness
General
Chief Complaint: Weakness
Source: patient and spouse
Time Seen by Provider: 07/11/24 11:07
History of Present Illness
History of Present Illness:
83-year-old male brought to the emergency room by family due to profound weakness, difficulty walking. Patient has a history of metastatic lung cancer. He has metastatic disease throughout his lung, right hip. Patient has been on different
treatments which have not worked. He was scheduled to see his oncologist today but due to his profound weakness family decided to bring him to the emergency room instead. No known fever. Patient denies significant pain.
Past History
Past History
ED Past Medical History: Cancer (Lung cancer), HTN, Hypercholesterolemia and NIDDM
ED Past Surgical History: Orthopedic and Other (Lung resection)
Social History
Tobacco: Non-smoker
Alcohol: Occasional
Drug: None
Personal:
Living: with family
Phy Exam
Physical Exam
Physical Exam:
General: Awake, Alert, Oriented X3. Appears chronically ill
Vitals: Tachycardic
Head: Atraumatic
Eyes: Pupils equal, EOMI
Throat: Airway intact, no exudates, dry mucosa
Neck: Trachea midline
Lungs: Clear and equal b/l
Heart: Regular rate, no murmurs
Abd: Soft, Nontender, No pulsatile mass
Neuro: Right lower extremity weakness
Skin: Warm, dry, no rash
Extremities: pulses equal b/l, no edema
Course
Orders/Labs/Results
Orders:
Orders
07/11/24 11:04
EKG [Electrocardiogram (*1)] Urgent
Reason for Study: Chest Pain
EKG- Treatment ONCE
07/11/24 11:21
0.9% Sodium Chloride 1000 ml [Nss] 1,000 ml IV BOLUS
07/11/24 11:43
Complete Blood Count/With Diff Urgent
Comprehensive Metabolic Panel Urgent
Magnesium Urgent
Phos [Phosphorus] Urgent
07/11/24 12:27
CT Head W/o Iv Contrast Urgent
Comment:
Reason For Exam: falls, lung cancer
07/11/24 12:53
Osmolality, Random Urine Urgent
Date Specimen was Collected: 07/11/24
Time Specimen was Collected: 12:40
Comment: ADD ON
Urinalysis Reflex To Culture Urgent
Date Specimen was Collected: 07/11/24
Time Specimen was Collected: 12:40
Urine Sodium Urgent
Date Specimen was Collected: 07/11/24
Time Specimen was Collected: 12:40
Comment: ADD ON
07/11/24 14:34
Add On- LAB Urgent
Tests Added?: urine sodium, urine osmo
07/11/24 14:52
Admit/Transfer Patient As Directed
Co-Sign Provider:
Level of Care: Inpatient admission
Assign to:: IVU
Physician / Group: Htay
Diagnosis: Weakness
Reason for Hospitalization: IVFs, rhythm management
Expected length of stay greater than two midnights?: Yes
ELOS- Estimated Length of Stay in days: 3
I certify the patient meets the requirements for IP care: Yes
PRN Pain Medication Management As Directed
May give lesser potent ordered pain med per pt: Yes
preference::
Protocol:: Medication orders for pain may be administered in a
manner that supports deferring to patient preference
when the pt is:
- Requesting an ordered lesser potent pain medication.
Least to most potent pain medications are defined
as: acetaminophen < NSAID < tramadol < opioids
(morphine, oxycodone, hydromorphone).
- Requesting a lesser dose of the same medication IF
ORDERED.
- Requesting a less intrusive route of administration
if both routes are prescribed by the provider (PO <
IV).
07/11/24 Dinner
2000 calorie (17 carb) Diabetic
At Your Request: Full Participation
Fluid Restriction: 1200 mL/day (40 oz)
07/11/24 15:24
CR Chest - 2 Views Urgent
Comment:
Reason For Exam: cough, weakness, leukocytosis
07/11/24 15:28
Code Status As Directed
Resuscitation Status: Do not resuscitate
Reached after discussion with pt or family/Healthcare POA: Yes
07/11/24 15:29
DNR Bracelet Application ONCE
07/11/24 15:52
PRN Pain Medication Management As Directed
May give lesser potent ordered pain med per pt: Yes
preference::
Protocol:: Medication orders for pain may be administered in a
manner that supports deferring to patient preference
when the pt is:
- Requesting an ordered lesser potent pain medication.
Least to most potent pain medications are defined
as: acetaminophen < NSAID < tramadol < opioids
(morphine, oxycodone, hydromorphone).
- Requesting a lesser dose of the same medication IF
ORDERED.
- Requesting a less intrusive route of administration
if both routes are prescribed by the provider (PO <
IV).
07/11/24 15:54
Magnesium Sulfate 1 grams 0.9% Sodium Chloride 100 ml [Nss] 100 ml IV NOW
Potassium Chloride Powder [Klor-Con] 20 meq PO NOW STA
07/11/24 15:57
CARDIOLOGY CONSULT Routine
Consulting Provider: Pawan Ramos
Was physician already notified: Yes
07/11/24 18:16
Acetaminophen [Tylenol] 650 mg PO Q4HPRN PRN
Dextrose 50%-Water [Dextrose 50% Syringe] 12.5 grams IV [id number] PRN
Glucagon [GlucaGen] 1 mg IM PRN PRN
Insulin Aspart Corrective Mod [Novolog Flexpen-Moderate Resistance] See Protocol SC AC
Tramadol HCl [Ultram] 50 mg PO TIDPRN PRN
07/11/24 18:16
ONCOLOGY CONSULT Routine
Consulting Provider: Rowan Poole
Was physician already notified: Yes
Activity As Directed
Activity Level: Out of Bed- Chair
Encourage Progressive Amb
Bedside Glucose Monitoring As Directed
Frequency: AC&HS
Additional Instructions:: Change to q6h if pt on TPN, tube feeding or not eating
I&O [Intake/ Output] As Directed
Frequency: q12h
Orthostatic Vital Signs As Directed
Orthostatic VS Frequency: BID
Vital Signs As Directed
Frequency: Per unit guidelines
Weight As Directed
Frequency: Daily
Ot Eval And Treat Routine
Pt Eval And Treat Routine
Activity Level: Out of Bed-Early Mobility
With Assistance
Speech Therapy Eval & Treat Routine
DX Deep Vein Thrombosis Video Routine
07/11/24 18:30
0.9% Sodium Chloride 500 ml [Nss] 500 ml IV 40 mls/hr
07/12/24 07:51
Complete Blood Count/No Diff IN AM
Comprehensive Metabolic Panel IN AM
Glycohemoglobin (HgbA1c) IN AM
Magnesium IN AM
07/12/24 08:00
Doxazosin Mesylate [Cardura] 4 mg PO DAILY
Pantoprazole [Protonix] 40 mg PO DAILY
Prednisone [Deltasone] 10 mg PO DAILY
Rosuvastatin Calcium [Crestor] 10 mg PO DAILY
Abnormal Lab Results
07/11/24 07/11/24
11:43 12:53
WBC 11.8 H 10^3/uL
(4.8-10.8)
RBC 3.75 L 10^6/uL
(4.70-6.10)
Hgb 9.9 L g/dL
(13.0-18.0)
Hct 30.3 L %
(39.0-52.0)
MCH 26.4 L pg
(27.0-31.0)
MCHC 32.7 L g/dL
(33.0-37.0)
RDW 18.0 H %
(11.5-14.5)
Abs Immat Gran (auto) 0.1 H 10^3/uL
(0-0.05)
Absolute Neuts (auto) 10.9 H 10^3/uL
(1.4-6.5)
Absolute Lymphs (auto) 0.4 L 10^3/uL
(1.2-3.4)
Immature Gran % 0.6 H %
(0-0.5)
Neutrophils % 91.8 H %
(42.2-75.2)
Lymphocytes % 3.2 L %
(20.5-51.1)
Sodium 129 L mmol/L
(135-145)
Chloride 89 L mmol/L
(98-107)
BUN 25 H mg/dl
(9-20)
Glucose 370 H mg/dl
(70-99)
Total Bilirubin 1.4 H mg/dl
(0.2-1.3)
ALT 67 H U/L
(0-50)
Alkaline Phosphatase 143 H U/L
(38-126)
Total Protein 5.6 L g/dl
(6.3-8.2)
Albumin 3.1 L g/dl
(3.5-5.0)
Urine Ketones 1+ A
(Negative)
Urine Glucose 3+ A
(Negative)
07/11/24 11:43
07/11/24 11:43
Vital Signs
Initial and Last Documented VS:
Initial Vital Signs
Pulse Resp BP Pulse Ox
130 17 95/60 99
07/11/24 11:03 07/11/24 11:03 07/11/24 11:03 07/11/24 11:03
Last Documented Vital Signs
Temp Pulse Resp BP Pulse Ox
97.7 F 110 20 128/80 98
07/12/24 19:23 07/12/24 19:00 07/12/24 19:23 07/12/24 18:59 07/12/24 19:23
MDM/Problems Addressed
Differential Diagnosis Includes:
dehydration, electrolyte abn, uti, pneumonia
MDM/Problems Addressed:
Patient presents with failure to thrive, weakness and progression of lung cancer. Labs show elevated glucose, mild hyponatremia, prerenal azotemia. LFTs are mildly elevated. Patient will require hospitalization at his 2-week to go home.
*Radiology
Radiology exam reviewed: radiology read reviewed
*Pulse Oximetry
Patient hypoxic: no
*EKG
Interpreted by ED Provider?: Yes
Interpretation: abnormal
Heart Rate: 115
Rate: tachycardiac
Rhythm: a-fib
Interval: normal interval
QRS Pattern: normal QRS
Ischemia: non-specific ST changes
*Mid Level Game Designer Interpretation
Rate: tachycardiac
Interpretation: abnormal
Rhythm: a-fib
*Critical Care Note
Total Time (30-74mins, 75-104mins- exclusive of procedures): Not Applicable
ED Attending Note
-
Portions of this chart may have been created with voice recognition software.� Occasional wrong word or��sound alike� substitutions may have occurred due to the inherent limitations of voice recognition software.
Discharge Plan
Departure
Patient Disposition: Admit
Date of Disposition: 07/11/24
Time of Disposition: 14:24
Admit to: Med/Surg
Presentation/result/management discussed w/ accepting MD/DO: Hospitalist
Condition: Fair
Discharge Problem:
Right leg weakness, Malignant neoplasm of left lung stage 4, Acute dehydration
Interventions
Interventions:
*General Assessment Last Done: 07/11/24 11:17
*Neglect/Abuse Screening Last Done: 07/11/24 11:17
ED- Fall Risk Assessment Last Done: 07/11/24 11:17
*Nursing Disposition Last Done: 07/11/24 16:55
ED- Cardiac Assessment Last Done: 07/11/24 11:17
ED- Neurological Assessment Last Done: 07/11/24 11:17
ED- Pulmonary Assessment Last Done: 07/11/24 11:17
Discharge Date and Time
Discharge Date/Time: 07/11/24 16:57
[2024-07-11] MEDS: NSS 1000 IV (11:44)
[2024-07-11 11:51] LABS: % Basophils 0.2 % (0-2); % Eosinophils 0.1 % (0-6); % Immature Granulocytes 0.6 % (0-0.5); % Lymphocytes 3.2 % (20.5-51.1); % Monocytes 4.1 % (1.7-9.3); % Neutrophils 91.8 % (42.2-75.2); Absolute Immature Granulocytes 0.1 10^3/uL (0-0.05); Absolute Lymphocytes 0.4 10^3/uL (1.2-3.4); Absolute Monocytes 0.5 10^3/uL (0.1-0.6); Absolute Neutrophils 10.9 10^3/uL (1.4-6.5); Hematocrit 30.3 % (39.0-52.0); Hemoglobin 9.9 g/dL (13.0-18.0); Mean Corp Hgb Conc. 32.7 g/dL (33.0-37.0); Mean Corpuscular Hgb 26.4 pg (27.0-31.0); Mean Corpuscular Volume 80.8 fL (80.0-94.0); Mean Platelet Volume 9.7 fL (7.4-10.4); Nucleated Red Blood Cells % 0 % (-); Platelet Count 236 10^3/uL (130-400); Red Blood Cell Count 3.75 10^6/uL (4.70-6.10); White Blood Cell Count 11.8 10^3/uL (4.8-10.8)
[2024-07-11 12:11] LABS: AST (SGOT) 55 U/L (17-59); Albumin 3.1 g/dl (3.5-5.0); Alkaline Phosphatase 143 U/L (38-126); Blood Urea Nitrogen 25 mg/dl (9-20); Calcium 9.3 mg/dl (8.4-10.2); Carbon Dioxide 22 mmol/L (22-30); Chloride 89 mmol/L (98-107); Glucose 370 mg/dl (70-99); Magnesium 1.6 mg/dl (1.6-2.3); Phosphorus 3.4 mg/dl (2.5-4.5); Potassium 3.6 mmol/L (3.5-5.1); Sodium 129 mmol/L (135-145); Total Bilirubin 1.4 mg/dl (0.2-1.3); Total Protein 5.6 g/dl (6.3-8.2); eGFR > 60.00
[2024-07-11 12:22] LABS: ALT (SGPT) 67 U/L (0-50)
[2024-07-11 13:12] LABS: Urine Albumin Trace (Neg - Trace); Urine Bilirubin Negative (Negative); Urine Character Clear (Clear); Urine Color Yellow; Urine Glucose 3+ (Negative); Urine Ketone 1+ (Negative); Urine Leukocyte Negative (Negative); Urine Nitrite Negative (Negative); Urine Occult Blood Negative (Negative); Urine Urobilinogen Negative (Neg - 1+)
--- NOTE | 2024-07-11 14:35 | HPS.HSE ---
Family Physician
-
Family Physician: Mendel Wilkins
Chief Complaint
-
Weakness
History of Present Illness
Patient 83 yo male with a hx of stage 4 lung cancer with mets to the right hip, NIDDM, HTN, and atrial tachycardia presents for worsening fatigue and weakness. History provided by himself, daughters, and . He reports that he has felt globally
weak and fatigued since his last round of immunotherapy with Keytruda about 7 weeks ago. However, within the past week his fatigue and weakness has worsened, especially in the past 2 days. He notes that he stayed in bed all day yesterday and on
several occasions when he tried to stand, his legs 'collapsed underneath him.' He also reports intermittent sweats and lightheadedness since yesterday as well as 3 episodes of non-bloody diarrhea yesterday and 1 episode this morning. The diarrhea
began after he took a dose of laxatives for constipation. The diarrhea did not wake him from sleep. Denies recent changes to his diet. He has had a poor appetite for several weeks now and notes he did not eat or drink much yesterday. He was
scheduled to see his oncologist today but due to his profound weakness family decided to bring him to the emergency room instead. He denies abdominal pain, nausea, vomiting, headache, chest pain, SOB, fever or chills.
Medical History
Past Medical History
Past Medical History: Reports Other
Additional Past Medical History:
Metastatic Lung Cancer
Atrial Tachycardia
Essential Hypertension
Hyperlipidemia
Diabetes Mellitus, Type II
BPH
Past Surgical History: Reports Other
Additional Past Surgical History:
Left Total Hip Replacement
Left Lower Lobectomy
TURP
Cataract Surgery
Social History
Tobacco: Non-smoker
Personal:
Living: With Family
Family History
Family History: Not pertinent
Allergies / Home Medications
Allergies reflects when Allergies were last updated in [facility].
Home Medications with original date entered in [facility]
Allergy/Medication List:
Allergies
Allergy/AdvReac Type Severity Reaction Status Date / Time
No Known Allergies Allergy Verified 07/11/24 11:02
Home Medications
doxazosin 4 mg tablet 4 mg PO DAILY Urinary issue 10/16/16
glyburide 2.5 mg tablet 3.75 mg PO DAILY Diabetes 10/16/16
rosuvastatin 10 mg tablet 10 mg PO DAILY High cholesterol 10/16/16
multivit,Ca,min-iron 8 mg-folic acid 200 mcg-lycopene 600 mcg tablet (Centrum Men) 1 ea PO DAILY Supplement 11/20/21
vit C 250 mg-vit E 90 mg-zinc 40 mg-copper 1 uq-lixdaq-dynlmo capsule (PreserVision AREDS-2) 1 tab PO DAILY 10/15/23
selenium 200 mcg tablet 200 mcg PO DAILY 12/10/23
acetaminophen 500 mg tablet (Tylenol Extra Strength) 1,000 mg PO Q6HPRN PRN mild pain 07/11/24
hydrocortisone acetate 25 mg rectal suppository (Anusol-HC) 25 mg GA DAILYPRN PRN hemorrhoids 07/11/24
metoprolol succinate 50 mg tablet,extended release 24 hr 25 mg PO DAILY 07/11/24
omeprazole 40 mg capsule,delayed release 40 mg PO DAILY 07/11/24
prednisone 10 mg tablet 10 mg PO DAILY 07/11/24
tramadol 50 mg tablet 50 mg PO TIDPRN PRN moderate pain 07/11/24
Review of Systems
-
A 12 point ROS was completed and negative except as noted: Yes
Constitutional: Denies Fever
Respiratory: Denies Cough (Noted to be coughing after drinking water during my conversation) or Trouble Breathing
Cardiac: Denies Chest Pain or Palpitations
Abdomen/GI: Reports Diarrhea and Anorexia; Denies Abdominal Pain, Nausea or Vomiting
Physical Exam
Vital Signs
Vital Signs
Pulse Resp BP Pulse Ox
114 13 133/77 97
07/11/24 14:00 09/16/24 14:00 07/11/24 14:00 07/11/24 14:00
Physical Exam
General: Comfortable and Conversant
HEENT: NormoCephalic, Anicteric and Atraumatic
Respiratory: Rales (Right middle region) and Non Labored Respirations
Cardiac: Irregular Rhythm and Tachycardia
GI: Soft and Non Tender
Rectal: Deferred by Provider
Musculoskeletal: No Clubbing, No Cyanosis and No Edema
Skin: Warm and Dry
Neuro: Awake, Alert, Oriented and Other (RLE Weakness 3/5 )
Psych: Calm
Laboratory Results
-
07/11/24 11:43
07/11/24 11:43
Laboratory Results
Total Bilirubin 1.4 mg/dl (0.2-1.3) H 07/11/24 11:43
AST 55 U/L (17-59) 07/11/24 11:43
ALT 67 U/L (0-50) H 07/11/24 11:43
Alkaline Phosphatase 143 U/L (38-126) H 07/11/24 11:43
Data Reviewed
-
CT Scan: Report Reviewed by me
Lab Data: Labs Reviewed by me
Impression/Plan
-
Generalized Weakness/Ambulatory Dysfunction
-Suspect increasing cancer burden - Consult Oncology
-Check Chest X-Ray
-Check Thoracic and Lumbar MRI
-Consult PT/OT
Acute on Chronic Hyponatremia
-Suspect acute component of volume depletion on top of baseline SIADH
-Check urine sodium and urine osmo
-Continue fluid restriction
-Recheck sodium in AM
Tachycardia, possible New Diagnosis of A-fib vs Known Atrial Tachycardia
-Consult Cardiology
-Continue Metoprolol for rate control
Diabetes Mellitus, Type II
-Check HgbA1c
-Continue glyburide
-Monitor sugars and continue coverage insulin
Essential Hypertension
-Continue metoprolol with hold parameters
Hyperlipidemia
-Continue rosuvastatin
Metastatic Lung Cancer
-Last Keytruda end of April
BPH
-Continue doxazosin
DVT proph: Lovenox
Code Status: DNR
--- NOTE | 2024-07-11 14:51 | W.PN.UPDATE ---
Update Note
Progress Note Update
This note serves as an addendum to the H&P by environmental analyst RAQUEL Юлия GRIJALVA
HPI
83M HX metastatic lung cancer, DMT2, HTN, HLD pw progressive malaise and weakness, particularly right leg.Associated with ambulatory dysfunction. Mets in Rt hip acetabulum.
- No clinical improvement with differnet Tx per family
- He was scheduled to see his oncologist today but due to his profound weakness family decided to bring him to the emergency room instead.
- No known fever.
- Patient denies significant pain.
PHX; see above
Reviewed VS: afebrile, sinus tachy 114 Normotensive
PE
General: Awake, Alert, Oriented X3. Appears chronically ill
Vitals: Tachycardic
Head: Atraumatic
Eyes: Pupils equal, EOMI
Throat: Airway intact, no exudates, dry mucosa
Neck: Trachea midline
Lungs: Clear and equal b/l
Heart: Regular rate, no murmurs
Abd: Soft, Nontender, No pulsatile mass
Neuro: Right lower extremity weakness
Skin: Warm, dry, no rash
Extremities: pulses equal b/l, no edema
Data
WCC 11.8
Hgb 9.9 - was 10.3 on 07/01/24
Na 129 - baseline 130 - 133
Cl 89
Cr 0,7
BG 370
ALT 67
EKG: A Fib with HR 113 vs A tach
06/13/24 PT Pet Wbi W/CT Skull-thigh
1). There has been significant worsening of pulmonary metastasis in the interval since the previous examination with greater than 20 FDG avid pulmonary lesions scattered throughout both lungs measuring up to 23 mm.
Index lesions include:
--10 mm lesion in anteromedial right upper lobe (image 92 series 3), new when compared with the prior study measuring 5.5 SUV max
-12 mm lesion anterior basilar portion right middle lobe (image 104), new when compared with the prior study measuring 3.9 SUV max
-23 mm lesion posterior basilar right lower lobe (image 107), new when compared with the prior study measuring 6.7 SUV max
-8 mm lesion posterior medial apical segment left lower lobe (image 89), new when compared with the prior study measuring 4.7 SUV max
-7 mm lesion posterior basilar portion left lower lobe (image 107), new when compared with the prior study measuring 5.0 SUV max
2).There is a 5 cm expansile lytic destructive lesion in the lower right ilium measuring 9.9 SUV max consistent with osseous metastasis
3).There is cholelithiasis with probably inflammatory FDG avidity in the gallbladder fundus measuring 6.5 SUV max
04/09/24 MR Cervical Spine Without & W
1. Re demonstration of an osseous metastasis in the right lateral T6 vertebral body. Suspicion for a small metastasis in the spinous process of C2 in correlation with the PET/CT from 03/02/2024.
2. Chronic advanced degenerative changes of the cervical spine.
3. Moderate spinal canal stenosis at L3-4.
4. Mild spinal canal stenosis at C4-C5, C5-C6, and C6-C7.
5. Varying degrees of chronic multilevel bilateral neuroforaminal stenosis, overall most severe on the right at C3-C4, and bilaterally at C5-C6 and C6-C7.
07/01/24 TTE
1. Mild concentric left ventricular hypertrophy with preserved systolic function, EF 55-60%
2. Focally calcified mitral leaflets without restriction, mild to moderate mitral regurgitation, and normal left atrium
3. Trace aortic regurgitation
4. Normal right heart with mild tricuspid regurgitation, pulmonary artery systolic pressure 35 mmHg
5. The aortic root is 3.9 cm and the ascending aorta is mildly dilated at 4.3 cm
In September 2021 the ascending aorta was 3.3 cm. Otherwise, the 2 studies are
similar.
Last hospitalist admission:
ASSESSMENT & PLAN
Pending Rx reconciliation
FTT due to Increasing cancer burden with worsening pul mets dz by recent PET and eval for acute medical issues
Rt Hip pain with malaise and weakness
5 cm expansile lytic destructive lesion in the lower right ilium consistent with osseous metastasis
HX metastasis in the right lateral T6 vertebral body
Suspicion for a small metastasis in the spinous process of C2 in correlation with the PET/CT from 03/02/2024.
Significant worsening of pulmonary metastasis
Underlying Lung CA
- candidate for additional therapy per Onco Dr Winston
- for CXR - cough with drinking
- For MRI of Thoracic and Lx spine W/wo
- Pain control
- PT/OT
- Heme Onco consult
Worsening hyponatremia DDX; suspect recent diarrhea with dehydration with underlying SIADH
Recent Diarrhea per spouse ? ADES of Keytruda
HX chr mild hyponatremia
- Ur Na, Ur Osm
- FR 1200 cc / 40 oz daily ( inclusive of IV NS 40/H total 500 cc upon admission)
- Trend Na
New onset of A Fib with HR 113 vs. A tach
Recent ECHO on 07/01/24 : LVEF 55-60% with mild to moderate MR
- DCA card consult
Inadequate hyperglycemic control due to STONE UNLOADER Dexamethasone
HX T2DM
- cont . OP OHG agents
- add Low ISS
Essential HTN
- Pending Rx reconciliation for Doxazosin and Lisinopril and Metoprol
HLD
- cont. STONE UNLOADER Rosuvastatin
DVT Px: LMWH
Code: Full
IP TLM
[2024-07-11 15:04] LABS: Osmolality Urine 432 mOsm/kg (300-900)
[2024-07-11 15:11] LABS: Urine Sodium 45 mmol/L (30-90)
--- NOTE | 2024-07-11 16:40 | CON.CAR ---
Addendum entered and electronically signed by Harman Menendez MD 07/11/24 17:31:
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 He was originally diagnosed in 2020 status post left lower lobe lobectomy with 3 of 10 positive hilar nodes
consistent with metastatic disease. He received chemo therapy from November to January 2022 and was diagnosed with recurrent metastatic disease in October 2023 with biopsy proven recurring disease in the right lung. More recently he was noted to
have bony metastasis of the right acetabulum and adrenal metastasis. He received another round of chemotherapy completing this in March 2024. He was then moved to biologic agents including Keytruda in April as well as palliative radiation therapy of
the hip. Since April he reports he has been feeling poorly
His cardiac history was notable for an atrial tachycardia leading to an emergency department visit on June 07, 2024. He was started on low-dose metoprolol succinate and a 7-day monitor was placed. He did have a recent echocardiogram notable for
preserved left ventricular systolic function
He wore a [employer] DX monitor for 7 days and was noted to have frequent episodes of an atrial tachycardia lasting up to 8 beats. No atrial fibrillation.
He presents to the emergency department today feeling poorly with lack of energy
His electrocardiogram appears to be atrial fibrillation with a rapid ventricular response and a cardiology consult is now requested. Patient is unaware of any rhythm changes. He is generally feels rundown. He is weak often requiring assistance of
family for ambulation. He has never sustained a fall with injury, however, his legs became weak and he lowered himself to the ground on occasion over the past several weeks.
Past medical history:
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
-Atrial tachycardia
-Hypertension
-Hyperlipidemia
-Diabetes
-BPH
-Degenerative joint disease
Physical Exam
GEN: AAO x 3. No acute distress. Feels fatigued
HEENT: NC/AT, sclera are anicteric, hearing is normal.
LUNGS: Clear. No wheezing. No rales
CV: Irregularly irregular rate and rhythm. Normal S1/S2. Murmur: None
ABD : Soft, Bowel sounds are present.
EXT: No CCE
NEURO: No focal neurologic deficits
IMPRESSION / RECOMMENDATIONS:
-Atrial fibrillation with RVR and history of atrial tachycardia:
--- IV Cardizem for rate control
--- Begin IV heparin for CHA2DS VAS score of 4 (age, HTN, DM)
--- Will need to discuss long-term prognosis with oncology
--- May consider PABLO / CV and initiation of amiodarone therapy in attempt to maintain NSR. I would start amiodarone if he happens to flip out of atrial fibrillation
--- Last echocardiogram only about 2 weeks ago
--- Family states he is weak but no overt falls
-Metastatic lung cancer
--- Need to discuss oral anticoag with Oncology and interaction with upcoming treatments with anemia etc.
-Diabetes
--- Check HgbA1c
-Hyponatremia:
--- Primary team to evaluate
Original Note:
Consultation
Consultation Request
Date/Time Consultation Requested: 07/11/2024
Date/Time Consultation Performed: 07/11/2024
Requesting Provider: Elina Pulido PA-C
Performing Provider: Yana Hall PA-C with Dr. Harman Menendez
Reason for Consultation: Atrial fibrillation
Medical History
-
History of Present Illness:
Patient is an 83-year-old male with past medical history significant for stage IV lung cancer status post left lower lobe resection September 2021 with recurrence and bone mets to right hip, hypertension, hyperlipidemia, diabetes and atrial
tachycardia on beta-wendy who presents to emergency department with progressive weakness, fatigue, malaise, poor appetite. Patient has been undergoing treatment for recurrent stage IV lung cancer with last treatment 05/17/2024. Treatment had been
placed on hold due to fatigue and weakness. He has received several fluid boluses and iron infusions but not a blood transfusion per family. He was supposed to see oncology today however due to worsening weakness family brought him to emergency
department. He was noted to be in atrial fibrillation with rapid ventricular response. Also found to be hyponatremic with sodium of 129 and hyperglycemic with glucose of 370. In general patient has been physically declining with worsening
weakness and ambulatory dysfunction. Family reports his legs have been giving out when he attempts to walk. Fortunately he has not suffered any serious falls or injuries. He has very poor appetite and oral hydration. He reports to me he just has
no desire to eat. He also complains of difficulty swallowing food. Patient denies chest pain, shortness of breath, palpitations or feeling of his heart being fast or irregular.
PMH:
Stage IV Metastatic Lung Cancer
Atrial Tachycardia
Essential Hypertension
Hyperlipidemia
Diabetes Mellitus, Type II
Anemia
BPH
Left Total Hip Replacement
Left Lower Lobectomy
TURP
Cataract Surgery
Past Medical History
Past Medical History: Other (See HPI)
Past Surgical History: Orthopedic (Left total hip replacement), Urological (TURP) and Other (Left lower lobectomy September 2021, cataract extraction)
Social History
Tobacco: Non-Smoker
Alcohol: None
Drug: None
Personal:
Living: With Family
Family History
Family History: Other (Father prostate cancer, mother CAD, hyperlipidemia)
Allergies / Home Medications
Allergy/AdvReac Type Severity Reaction Status Date / Time
No Known Allergies Allergy Verified 07/11/24 11:02
�Medication �Instructions �Recorded �Confirmed �Type
doxazosin 4 mg tablet 4 mg PO DAILY Urinary issue 10/16/16 07/11/24 History
glyburide 2.5 mg tablet 3.75 mg PO DAILY Diabetes 10/16/16 07/11/24 History
rosuvastatin 10 mg tablet 10 mg PO DAILY High cholesterol 10/16/16 07/11/24 History
multivit,Ca,min-iron 8 mg-folic 1 ea PO DAILY Supplement 11/20/21 07/11/24 History
acid 200 mcg-lycopene 600 mcg
tablet (Centrum Men)
vit C 250 mg-vit E 90 mg-zinc 40 1 tab PO DAILY 10/15/23 07/11/24 History
mg-copper 1 [id number]
capsule (PreserVision AREDS-2)
selenium 200 mcg tablet 200 mcg PO DAILY 12/10/23 07/11/24 History
acetaminophen 500 mg tablet 1,000 mg PO Q6HPRN PRN mild pain 07/11/24 07/11/24 History
(Tylenol Extra Strength)
hydrocortisone acetate 25 mg 25 mg NV DAILYPRN PRN hemorrhoids 07/11/24 07/11/24 History
rectal suppository (Anusol-HC)
metoprolol succinate 50 mg 25 mg PO DAILY 07/11/24 07/11/24 History
tablet,extended release 24 hr
omeprazole 40 mg capsule,delayed 40 mg PO DAILY 07/11/24 07/11/24 History
release
prednisone 10 mg tablet 10 mg PO DAILY 07/11/24 07/11/24 History
tramadol 50 mg tablet 50 mg PO TIDPRN PRN moderate pain 07/11/24 07/11/24 History
Review of Systems
-
History Source: Patient
All other systems: Negative unless noted
Physical Exam
Vital Signs
Pulse Resp BP Pulse Ox
102 25 133/77 97
07/11/24 14:30 07/11/24 14:30 07/11/24 14:00 07/11/24 14:30
GEN: No distress, awake, Ox3, elderly and frail-appearing
HEENT: supple, anicteric, mmm
LUNGS: CTA, no wheezes/rales
CV: Irregularly irregular, S1/S2, 1/6 syst murmur at apex
ABD: soft, BS+, NT/ND
EXT: No edema, clubbing or cyanosis
NEURO: Gross non-focal
SKIN: No rash, warm, dry, pink
Lab Results
07/11/24 11:43
07/11/24 11:43
Impression / Plan
-
PCP: Mendel Wilkins
Sprinkler Repair Technician: Harman Russell
Oncologist: Dr. Winston
Impression:
Presents 07/11/2024 with generalized weakness, fatigue, poor appetite
Atrial fibrillation with rapid ventricular response
Hyponatremia
Hyperglycemia
Ambulatory dysfunction
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
Left Lower Lobectomy
Previous treatment with immunotherapy, radiation to hip and Keytruda, last dose 05/17/2024
Atrial Tachycardia
Essential Hypertension
Hyperlipidemia
Diabetes Mellitus, Type II
Anemia
BPH
Left Total Hip Replacement
TURP
Cataract Surgery
Echo 07/01/2024: EF 55 to 60% mild concentric LVH. Mild to moderate MR. Mild TR with PAP 35 mmHg. Aortic root 3.9 cm, ascending aorta 4.3 cm
Plan:
-Presents 07/11/2024 with generalized weakness, fatigue, poor appetite, ambulatory dysfunction
-Atrial fibrillation with rapid ventricular response.
Previously known to have atrial tachycardia and was maintained on Toprol as outpatient. Dose was recently reduced by PCP due to hypotension and fatigue
Appears to be new diagnosis
Give IV Cardizem bolus x 1 now followed by IV Cardizem drip. Uptitrate as heart rate and blood pressure allow
Stop Toprol while on diltiazem
Difficult situation in regards to anticoagulation as patient has ambulatory dysfunction, chronic anemia and recent falls. Also unclear long-term prognosis given metastatic lung cancer
Will start IV heparin as form of anticoagulation
Will reach out to heme-onc, patient follows with Dr. Winston regarding long-term prognosis.
If patient would be a good candidate for anticoagulation would consider proceeding with PABLO/cardioversion then initiation of amiodarone versus rate control
[id number] score 4 (age, HTN, DM)
Check TSH in am
Stage IV metastatic lung cancer, follows with Dr. Winston. Would consult heme-onc
Previously treated with Keytruda and radiation.
Family does report next treatment plan was to initiate Rybrevant and Darbepoetin but patient has not started treatment yet
MRI imaging of thoracic and lumbar spine ordered by primary service
Dysphagia as patient reports difficulty swallowing and cough with drinking. Would consider speech evaluation
Hyponatremia, sodium 129. Would restrict free water and trend sodium. Treatment per primary team
Hyperglycemia, on glyburide as outpatient. Treatment per primary service
Ambulatory dysfunction -PT/OT eval
History of hypertension.
However recently patient has been hypotensive with weight loss and poor appetite
Only home medication for blood pressure is doxazosin for BPH and low-dose metoprolol for atrial tachycardia
Continue to monitor and trend
Plan discussed with patient, patient's family, primary service
HPI 07/11/2024:
Patient is an 83-year-old male with past medical history significant for stage IV lung cancer status post left lower lobe resection September 2021 with recurrence and bone mets to right hip, hypertension, hyperlipidemia, diabetes and atrial
tachycardia on beta-wendy who presents to emergency department with progressive weakness, fatigue, malaise, poor appetite. Patient has been undergoing treatment for recurrent stage IV lung cancer with last treatment 05/17/2024. Treatment had been
placed on hold due to fatigue and weakness. He has received several fluid boluses and iron infusions but not a blood transfusion per family. He was supposed to see oncology today however due to worsening weakness family brought him to emergency
department. He was noted to be in atrial fibrillation with rapid ventricular response. Also found to be hyponatremic with sodium of 129 and hyperglycemic with glucose of 370. In general patient has been physically declining with worsening
weakness and ambulatory dysfunction. Family reports his legs have been giving out when he attempts to walk. Fortunately he has not suffered any serious falls or injuries. He has very poor appetite and oral hydration. He reports to me he just has
no desire to eat. He also complains of difficulty swallowing food. Patient denies chest pain, shortness of breath, palpitations or feeling of his heart being fast or irregular.
Data Reviewed
-
EKG: Report Reviewed by me, Discussed with Physician, Discussed with Patient and Discussed with Family
Radiology: Report Reviewed by me, Discussed with Physician, Discussed with Patient and Discussed with Family
Medical Tests (Nuc Med, Echo etc): Image Personally Visualized and interpreted (echo from 07/01/24), Report Reviewed by me, Discussed with Physician and Discussed with Patient
Labs: Labs Reviewed by me, Discussed with Physician, Discussed with Patient and Discussed with Family
Old Records: Reviewed
[2024-07-11 18:11] LABS: Hematocrit 28.9 % (39.0-52.0); Hemoglobin 9.7 g/dL (13.0-18.0); Mean Corp Hgb Conc. 33.6 g/dL (33.0-37.0); Mean Corpuscular Hgb 26.6 pg (27.0-31.0); Mean Corpuscular Volume 79.4 fL (80.0-94.0); Mean Platelet Volume 9.5 fL (7.4-10.4); Platelet Count 238 10^3/uL (130-400); Red Blood Cell Count 3.64 10^6/uL (4.70-6.10); White Blood Cell Count 10.1 10^3/uL (4.8-10.8)
--- NOTE | 2024-07-11 18:21 | PTCARENOTE ---
Patient briefly on unit, awaiting transfer to IVU. Patient transferred to room 2258. All belongings accounted for.
[2024-07-11 18:24] LABS: APTT 38.3 Sec (23.4-35.0)
[2024-07-11] MEDS: CARDIZEM 15 MG IV (18:31)
[2024-07-11] MEDS: FLUSH (NSS) 5 FLUSH IV (18:32)
[2024-07-11] MEDS: KLOR-CON 20 MEQ PO (18:33)
[2024-07-11] MEDS: MAGNESIUM SULFATE 102 GRAMS IV (18:36)
[2024-07-11] MEDS: NSS 500 IV (18:37)
[2024-07-11] MEDS: HEPARIN 25000 UNITS/250 ML IV (18:37)
[2024-07-11] MEDS: CARDIZEM 125 IV (18:39)
[2024-07-11 18:47] LABS: Glucose - Point of Care 280 mg/dl (70-99)
[2024-07-11] MEDS: NOVOLOG FLEXPEN-MODERATE RESISTANCE 5 UNITS SC (19:41)
[2024-07-11 23:00] LABS: Glucose - Point of Care 225 mg/dl (70-99)
[2024-07-12] VITALS (9 sets, daily range): BP systolic 98–128; BP diastolic 51–87; PULSE 110; O2SAT 98; BMI 23.3
[2024-07-12 01:01] LABS: APTT 44.3 Sec (23.4-35.0)
--- NOTE | 2024-07-12 02:28 | PTCARENOTE ---
Assumed care of patient at change of shift. Tele monitor shows Afib w/ HR in the 80-100s at rest. HR went into the 140s w/ambulation. Cardizem gtt infusing at 5ml/hr. BP stable. Orthos obtained per order. Denies any lightheadedness w/ standing at
bedside. Ambulated w/ standby assist and required RW. Pt w/ generalized weakness. IV Heparin gtt currently infusing at 10.5ml/hr. Next ptt due at 07:10. Pt aware of POC. Call aiken within reach.
[2024-07-12] MEDS: TYLENOL 650 MG PO ×2 (03:50→22:26)
--- NOTE | 2024-07-12 06:57 | W.PN.HOSP.TC ---
Today's Communication/Plan
-
PT/OT
Wean off Cardizem gtt as tolerated
Oncology to evaluate and assess
Need for systemic AC
MRI studies
Assessment / Plan
Assessment / Plan
Physical exam:
GEN: No distress, awake, Ox3, elderly and frail-appearing
HEENT: supple, anicteric, mmm
LUNGS: CTA, no wheezes/rales
CV: Irregularly irregular, S1/S2, + murmur
ABD: soft, BS+, NT/ND
EXT: No edema, clubbing or cyanosis
NEURO: Gross non-focal
SKIN: No rash, warm, dry, pink
Psych: calm
# Generalized weakness with failure to thrive due to Increasing cancer burden with worsening pul mets dz by recent PET and eval for acute medical issues
Rt Hip pain with malaise and weakness
5 cm expansile lytic destructive lesion in the lower right ilium consistent with osseous metastasis
HX metastasis in the right lateral T6 vertebral body
Suspicion for a small metastasis in the spinous process of C2 in correlation with the PET/CT from 03/02/2024.
Significant worsening of pulmonary metastasis
Underlying Lung CA
- Primary oncologist Dr Winston
- For MRI of Thoracic and Lx spine W/wo
- Pain control
- PT/OT
- Heme Onco consulted to weight on options/ prognosis
# Acute on chronic hyponatremia DDX; suspect recent diarrhea with dehydration with underlying SIADH due to
Recent Diarrhea per spouse ? ADES of Keytruda
HX chr mild hyponatremia
- Ur Na, Ur Osm
- FR 1200 cc / 40 oz daily ( inclusive of IV NS 40/H total 500 cc upon admission)
- Trend Na
# Anemia of cancer
#New onset of A Fib with HR 113 vs. A tach
Recent ECHO on 07/01/24 : LVEF 55-60% with mild to moderate MR
c/w IV Cardizem, titrate to off, start oral Tx
On IV heparin gtt, will need oral AC therapy
- DCA card consult
Inadequate hyperglycemic control due to DESIGN AGENT Dexamethasone
HX T2DM
- cont . OP OHG agents
- add Low ISS
Essential HTN
-
HLD
- cont. DESIGN AGENT Rosuvastatin
Total time spent to see the patient, examine the patient on the floor, review data and lab results, discuss treatment plan with patient, nursing staff around 55 minutes
Anticipated Discharge: 24 - 48 hours
Subjective/Interval History
-
Date of Service: July 12, 2024
No sob
No chest pain
Overall feels better
Objective Data
-
Labs:
Laboratory Results
07/12/24 07/12/24 07/12/24
00:44 06:00 07:10
WBC Pending
Hgb Pending
Hct Pending
Plt Count Pending
APTT 44.3 H Pending
Sodium Pending
Potassium Pending
Chloride Pending
Carbon Dioxide Pending
BUN Pending
Creatinine Pending
Glucose Pending
Calcium Pending
Total Bilirubin Pending
AST Pending
ALT Pending
Alkaline Phosphatase Pending
Vital Signs:
Vital Signs
Temp Pulse Resp BP Pulse Ox
97.9 F 105 18 127/81 98
07/12/24 03:45 07/12/24 03:00 07/12/24 03:45 07/12/24 03:45 07/12/24 03:45
I&O
07/10/24 07/11/24 07/12/24
06:59 06:59 06:59
Intake Total 894 / 894
Output Total 200 / 200
Balance 694 / 694
[2024-07-12 08:05] LABS: Hematocrit 28.9 % (39.0-52.0); Hemoglobin 9.2 g/dL (13.0-18.0); Mean Corp Hgb Conc. 31.8 g/dL (33.0-37.0); Mean Corpuscular Hgb 25.8 pg (27.0-31.0); Mean Platelet Volume 9.6 fL (7.4-10.4); Platelet Count 221 10^3/uL (130-400); Red Blood Cell Count 3.57 10^6/uL (4.70-6.10); Red Cell Dist. Width 17.7 % (11.5-14.5); White Blood Cell Count 9.3 10^3/uL (4.8-10.8)
[2024-07-12 08:18] LABS: APTT 42.2 Sec (23.4-35.0)
--- NOTE | 2024-07-12 08:56 | W.PN.CARDCBS ---
Addendum entered and electronically signed by Douglas Toledo MD 07/12/24 10:44:
I saw and examined the patient.
The Patient Registration Rep's note was reviewed and I agree with the note.
Comment:
GEN: No distress, awake, Ox3
HEENT: supple, anicteric, mmm
LUNGS: CTA, no wheezes/rales
CV: Reg with ectopy, S1/S2, /6 syst LSB, no gallop
ABD: soft, BS+, NT/ND
EXT: No edema
NEURO: Gross non-focal
SKIN: No rash
Plan:
In sinus with frequent PACs/Atach
Start Amiodarone 200mg po tid.
Stop Cardizem gtt. Would add Toprol 25mg po daily.
Stop Heparin gtt.
Start Eliquis 5mg po bid
Appreciate Heme input. Follow Hg
Original Note:
Today's Communication / Plan
-
Start amiodarone 200 mg 3 times daily
Consider adding back Toprol if BP allows
Wean off Cardizem drip as heart rate allows
Stop heparin drip
Start Eliquis 5 mg twice a day
Check TSH, hemoglobin A1c
Impression / Plan
-
PCP: Mendel Wilkins
Hi Lift Operator: Harman Russell
Oncologist: Dr. Winston
Impression:
Presents 07/11/2024 with generalized weakness, fatigue, poor appetite
Atrial fibrillation with rapid ventricular response, new diagnosis 07/11/24
Hyponatremia
Hyperglycemia
Ambulatory dysfunction
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
Left Lower Lobectomy
Previous treatment with immunotherapy, radiation to hip and Keytruda, last dose 05/17/2024
Atrial Tachycardia
Essential Hypertension
Hyperlipidemia
Diabetes Mellitus, Type II
Anemia
BPH
Left Total Hip Replacement
TURP
Cataract Surgery
7-day outpatient monitor completed 06/16/2024: Predominantly sinus rhythm heart rate range 72 to 115 bpm in sinus rhythm, average 86. Frequent episodes of atrial tachycardia (~2647), longest 8 beats average 110 to 137 bpm, highest 163 bpm. Frequent
PACs 16%, rare PVCs 0.1%.
Echo 07/01/2024: EF 55 to 60% mild concentric LVH. Mild to moderate MR. Mild TR with PAP 35 mmHg. Aortic root 3.9 cm, ascending aorta 4.3 cm
Plan:
-Presents 07/11/2024 with generalized weakness, fatigue, poor appetite, ambulatory dysfunction
-Atrial fibrillation with rapid ventricular response.
New diagnosis this admit. Previously known to have atrial tachycardia on outpatient monitor May 2024 and was maintained on Toprol as outpatient with lowering of dose due to hypotension prior to admission.
Per my review of tele pt converted to sinus rhythm/tachycardia with frequent PACs and frequent runs of atrial tachycardia on diltiazem drip.
Will start amiodarone 200 mg 3 times daily and attempt for rate and rhythm control. Will wean off diltiazem drip as heart rate allows
Toprol placed on hold on admission. If BP remains stable consider adding back
After discussion with heme-onc patient appears to be candidate for anticoagulation.
Stop IV heparin gtt
Will start Eliquis 5 mg twice daily 07/12/2024, hgb 9.2. Continue to monitor/trend
[id number] score 4 (age, HTN, DM)
Check TSH
Stage IV metastatic lung cancer, follows with Dr. Winston.
Heme-onc on board
Treated with chemo therapy, Keytruda and radiation of rt acetabulum mets
Family does report next treatment plan was to initiate Rybrevant and Darbepoetin but patient has not started treatment yet
MRI imaging of thoracic and lumbar spine ordered by primary service
Dysphagia as patient reports difficulty swallowing and cough with drinking. Would consider speech evaluation
Hyponatremia, improved 129->135.
Hyperglycemia. HgA1c pending. Treatment per primary service. On glyburide as outpatient
Ambulatory dysfunction -PT/OT eval
History of hypertension.
However recently patient has been hypotensive with weight loss and poor appetite
Only home medication for blood pressure is doxazosin for BPH and low-dose metoprolol for atrial tachycardia
Continue to monitor and trend
Plan discussed with patient, primary service, heme/onc and nursing
HPI 07/11/2024:
Patient is an 83-year-old male with past medical history significant for stage IV lung cancer status post left lower lobe resection September 2021 with recurrence and bone mets to right hip, hypertension, hyperlipidemia, diabetes and atrial
tachycardia on beta-wendy who presents to emergency department with progressive weakness, fatigue, malaise, poor appetite. Patient has been undergoing treatment for recurrent stage IV lung cancer with last treatment 05/17/2024. Treatment had been
placed on hold due to fatigue and weakness. He has received several fluid boluses and iron infusions but not a blood transfusion per family. He was supposed to see oncology today however due to worsening weakness family brought him to emergency
department. He was noted to be in atrial fibrillation with rapid ventricular response. Also found to be hyponatremic with sodium of 129 and hyperglycemic with glucose of 370. In general patient has been physically declining with worsening
weakness and ambulatory dysfunction. Family reports his legs have been giving out when he attempts to walk. Fortunately he has not suffered any serious falls or injuries. He has very poor appetite and oral hydration. He reports to me he just has
no desire to eat. He also complains of difficulty swallowing food. Patient denies chest pain, shortness of breath, palpitations or feeling of his heart being fast or irregular.
Progress Note - Hi Lift Operator
Subjective
Date of Service: July 12, 2024
Patient seen and examined. Patient sitting up on edge of bed eating breakfast. Overall he reports he feels better today and less weak. Still unaware of tachycardia or elevated heart rates. Denies chest pain or shortness of breath. Will have
some dizziness when changing positions.
Objective
Labs:
07/12/24 07:51
Labs
Hgb 9.2 g/dL (13.0-18.0) L 07/12/24 07:51
Hct 28.9 % (39.0-52.0) L 07/12/24 07:51
Plt Count 221 10^3/uL (130-400) 07/12/24 07:51
APTT 42.2 Sec (23.4-35.0) H 07/12/24 07:51
Sodium 129 mmol/L (135-145) L 07/11/24 11:43
Potassium 3.6 mmol/L (3.5-5.1) 07/11/24 11:43
BUN 25 mg/dl (9-20) H 07/11/24 11:43
Creatinine 0.7 mg/dL (0.7-1.3) 07/11/24 11:43
Glucose 370 mg/dl (70-99) H 07/11/24 11:43
Vital Signs and I&O:
Vital Signs
Temp Pulse Resp BP Pulse Ox
98.5 F 100 18 128/75 97
07/12/24 08:41 07/12/24 08:36 07/12/24 08:41 07/12/24 08:36 07/12/24 08:41
Vital Signs
Temp Pulse Resp BP Pulse Ox
98.5 F 100 18 128/75 97
07/12/24 08:41 07/12/24 08:36 07/12/24 08:41 07/12/24 08:36 07/12/24 08:41
Intake & Output
07/10/24 07/11/24 07/12/24 07/13/24
06:59 06:59 06:59 06:59
Intake Total 894 / 894 120 / 120
Output Total 200 / 200 370 / 370
Balance 694 / 694 -250 / -250
Physical Exam
Physical Exam
GEN: No distress, awake, Ox3, elderly and frail-appearing
HEENT: supple, anicteric, mmm
LUNGS: CTA, no wheezes/rales
CV: Irregularly, tachycardic, S1/S2, 1/6 syst murmur at apex
ABD: soft, BS+, NT/ND
EXT: No edema, clubbing or cyanosis
NEURO: Gross non-focal
SKIN: No rash, warm, dry, pink
[2024-07-12 08:58] LABS: Glucose - Point of Care 147 mg/dl (70-99)
--- NOTE | 2024-07-12 09:02 | CON.ONC ---
Impression
Impression
weakness, fatigue
new afib w/ RVR
metastatic NSCLC w/ recent progression on Keytruda, to begin Rybrevant soon
anemia of malignancy (no iron deficiency, ferritin 1345 on 05/26/24)
Plan
Plan
No heme/onc contraindications to anticoagulation. Anemia is not from bleeding/iron def.
Further treatment for lung cancer (Rybrevant) once stable from cardiology standpoint
Will add Aranesp as outpatient for anemia
Will follow along peripherally, please call w/ questions
Patient History
History of Present Illness
This is an 83 [address] Winston, with h/o stage III NSCLC, s/p LLL lobectomy in 2020, with subsequent diagnosis of lung and bone mets, most recently on immunotherapy w/ Keytruda until 06/13/24 PET showed disease progression. A plan was made to
switch treatment to Rybrevant, which hasn't started yet.
Patient has had worsening weakness and fatigue over the past month, with outpatient monitor showing atrial tach. He presented to the ER and was found to have atrial fib w/ RVR. He's been admitted to the IVU, started on heparin. He denies bleeding.
He has a h/o progressive anemia, likely related to malignancy. Iron studies on 05/26/24 showed ferritin of 1345.
He had right hip radiation in April 2024 for pain control, now with only discomfort remaining.
Past-Medical/Surgical History
PMH and PSH - as per the HPI, also HTN, DM, HLD, LLL lobectomy hip replacement
Patient Medication
�Medication �Instructions �Recorded �Confirmed �Last Taken �Type
doxazosin 4 mg tablet 4 mg PO DAILY Urinary issue 10/16/16 07/11/24 07/10/24 History
glyburide 2.5 mg tablet 3.75 mg PO DAILY Diabetes 10/16/16 07/11/24 07/10/24 History
rosuvastatin 10 mg tablet 10 mg PO DAILY High cholesterol 10/16/16 07/11/24 07/10/24 History
multivit,Ca,min-iron 8 mg-folic 1 ea PO DAILY Supplement 11/20/21 07/11/24 07/10/24 History
acid 200 mcg-lycopene 600 mcg
tablet (Centrum Men)
vit C 250 mg-vit E 90 mg-zinc 40 1 tab PO DAILY 10/15/23 07/11/24 07/10/24 History
mg-copper 1 [id number]
capsule (PreserVision AREDS-2)
selenium 200 mcg tablet 200 mcg PO DAILY 12/10/23 07/11/24 07/10/24 History
acetaminophen 500 mg tablet 1,000 mg PO Q6HPRN PRN mild pain 07/11/24 07/11/24 Unknown History
(Tylenol Extra Strength)
hydrocortisone acetate 25 mg 25 mg NC DAILYPRN PRN hemorrhoids 07/11/24 07/11/24 Unknown History
rectal suppository (Anusol-HC)
metoprolol succinate 50 mg 25 mg PO DAILY 07/11/24 07/11/24 07/11/24 History
tablet,extended release 24 hr
omeprazole 40 mg capsule,delayed 40 mg PO DAILY 07/11/24 07/11/24 07/11/24 History
release
prednisone 10 mg tablet 10 mg PO DAILY 07/11/24 07/11/24 07/11/24 History
tramadol 50 mg tablet 50 mg PO TIDPRN PRN moderate pain 07/11/24 07/11/24 Unknown History
Active Medications
Generic Name Dose Route Start Last Admin
Trade Name Freq PRN Reason Stop Dose Admin
Acetaminophen 650 mg 07/11/24 18:16 07/12/24 03:50
Acetaminophen 325 Mg Tablet PO 08/08/24 18:15 650 mg
Q4HPRN PRN Administration
mild pain/ fever>100.5F
Dextrose 12.5 grams 07/11/24 18:16
Dextrose 50% (0.5 Grams/Ml) 50 Ml Syringe IV 08/08/24 18:15
[id number] PRN
hypoglycemia
Protocol
Doxazosin Mesylate 4 mg 07/12/24 08:00
Doxazosin 4 Mg Tablet PO 08/09/24 07:59
DAILY RUPALI
Glucagon 1 mg 07/11/24 18:16
Glucagon 1 Mg Vial IM 08/08/24 18:15
PRN PRN
hypoglycemia
Protocol
Glyburide 3.75 mg 07/12/24 08:00
Glyburide 2.5 Mg Tablet PO 08/09/24 07:59
DAILY RUPALI
Heparin Sodium (Porcine) 500 unit 07/11/24 17:00
Heparin Flush Pf (100 Unit/Ml) 5 Ml Syringe IV 08/08/24 16:59
PER PROTOCOL RUPALI
Heparin Sodium 25,000 units in 250 mls @ 0 mls/hr 07/11/24 17:00 07/11/24 18:37
Heparin 15772 Units/250 Ml IV 250 mls
PER PROTOCOL RUPALI Administration
Protocol
Per Protocol
Diltiazem HCl 125 mg in 125 mls @ 0 mls/hr 07/11/24 17:00 07/11/24 18:39
Cardizem IV 125 mls
PER PROTOCOL RUPALI Administration
Protocol
Per Protocol
Insulin Aspart 0 units 07/11/24 18:16 07/11/24 19:41
Insulin Aspart Moderate Resistance 300 Units/3 Ml Pen.Injctr SC 08/08/24 18:15 5 units
AC RUPALI Administration
Protocol
Pantoprazole Sodium 40 mg 07/12/24 08:00
Pantoprazole 40 Mg Delayed Release Tablet PO 08/09/24 07:59
DAILY RUPALI
Prednisone 10 mg 07/12/24 08:00
Prednisone 10 Mg Tablet PO 08/09/24 07:59
DAILY RUPALI
Rosuvastatin Calcium 10 mg 07/12/24 08:00
Rosuvastatin (Crestor) 10 Mg Tablet PO 08/09/24 07:59
DAILY RUPALI
Sodium Chloride 0 flush 07/11/24 17:00 07/11/24 18:32
Sodium Chloride 0.9% (Flush) Syringe IV 08/08/24 16:59 5 flush
PER PROTOCOL RUPALI Administration
Tramadol HCl 50 mg 07/11/24 18:16
Tramadol Hcl 50 Mg Tablet PO 08/08/24 18:15
TIDPRN PRN
moderate pain
Review of Systems
-
All Other Systems: Not reviewed unless documented
Physical Exam
-
General: No Apparent Distress, Comfortable and Conversant
HEENT: Negative Jaundice
Cardiology: Irregular Rate/Rhythm
Pulmonary: Clear
GI: Soft
Musculoskeletal: No Clubbing, No Cyanosis and No Edema
Extremities: No C/C/E
Neurology: Non Focal, No Lateralizing Symptoms and No Word Finding Difficulty
Skin: Warm and Dry
Psych: Calm and Intact Judgement/Insight
Labs
Lab Results
WBC 9.3 10^3/uL (4.8-10.8) 07/12/24 07:51
RBC 3.57 10^6/uL (4.70-6.10) L 07/12/24 07:51
Hgb 9.2 g/dL (13.0-18.0) L 07/12/24 07:51
Hct 28.9 % (39.0-52.0) L 07/12/24 07:51
MCV 81.0 fL (80.0-94.0) 07/12/24 07:51
MCH 25.8 pg (27.0-31.0) L 07/12/24 07:51
MCHC 31.8 g/dL (33.0-37.0) L 07/12/24 07:51
RDW 17.7 % (11.5-14.5) H 07/12/24 07:51
Plt Count 221 10^3/uL (130-400) 09/17/24 07:51
MPV 9.6 fL (7.4-10.4) 07/12/24 07:51
Abs Immat Gran (auto) 0.1 10^3/uL (0-0.05) H 07/11/24 11:43
Absolute Neuts (auto) 10.9 10^3/uL (1.4-6.5) H 07/11/24 11:43
Absolute Lymphs (auto) 0.4 10^3/uL (1.2-3.4) L 07/11/24 11:43
Absolute Monos (auto) 0.5 10^3/uL (0.1-0.6) 07/11/24 11:43
Absolute Eos (auto) 0.0 10^3/uL (0-0.7) 07/11/24 11:43
Absolute Basos (auto) 0.0 10^3/uL (0-0.2) 07/11/24 11:43
Immature Gran % 0.6 % (0-0.5) H 07/11/24 11:43
Neutrophils % 91.8 % (42.2-75.2) H 07/11/24 11:43
Lymphocytes % 3.2 % (20.5-51.1) L 07/11/24 11:43
Monocytes % 4.1 % (1.7-9.3) 07/11/24 11:43
Eosinophils % 0.1 % (0-6) 07/11/24 11:43
Basophils % 0.2 % (0-2) 07/11/24 11:43
Creatinine 0.7 mg/dL (0.7-1.3) 07/11/24 11:43
Vital Signs
Vital Signs
Temp Pulse Resp BP Pulse Ox
98.5 F 100 18 128/75 97
07/12/24 08:41 07/12/24 08:36 07/12/24 08:41 07/12/24 08:36 07/12/24 08:41
[2024-07-12 09:05] LABS: ALT (SGPT) 65 U/L (0-50); AST (SGOT) 55 U/L (17-59); Albumin 2.8 g/dl (3.5-5.0); Alkaline Phosphatase 130 U/L (38-126); Blood Urea Nitrogen 19 mg/dl (9-20); Calcium 8.9 mg/dl (8.4-10.2); Carbon Dioxide 28 mmol/L (22-30); Chloride 96 mmol/L (98-107); Estimated Creatinine Clearance 92 ml/min; Glucose 149 mg/dl (70-99); Iron 55 ug/dl (49-181); Magnesium 1.9 mg/dl (1.6-2.3); Potassium 3.5 mmol/L (3.5-5.1); Sodium 135 mmol/L (135-145); Total Bilirubin 0.8 mg/dl (0.2-1.3); Total Protein 5.4 g/dl (6.3-8.2); eGFR > 60.00
[2024-07-12] MEDS: NOVOLOG FLEXPEN-MODERATE RESISTANCE SC (09:07)
[2024-07-12 09:14] LABS: Percent Saturation 37 % (20-50); Total Iron Binding Capacity 148 ug/dl (261-462)
[2024-07-12 09:29] LABS: Glycohemoglobin (HgbA1c) 7.8 % (4.0-5.6)
[2024-07-12] MEDS: PROTONIX 40 MG PO (09:51)
[2024-07-12] MEDS: CARDURA 4 MG PO (09:51)
[2024-07-12] MEDS: MICRONASE 3.75 MG PO (09:51)
[2024-07-12] MEDS: DELTASONE 10 MG PO (09:51)
[2024-07-12] MEDS: CRESTOR 10 MG PO (09:51)
[2024-07-12] MEDS: PACERONE 200 MG PO ×3 (10:05→22:25)
[2024-07-12] MEDS: ELIQUIS 5 MG PO ×2 (10:05→19:34)
[2024-07-12 10:12] LABS: TSH Reflex To Free T4 0.94 uIU/ml (0.47-4.68)
--- NOTE | 2024-07-12 12:24 | PTOTSP ---
Dysphagia Evaluation
Patient with mild but functional oral stage differences and no signs or complaints of pharyngeal dysphagia. He is reporting poor appetite/change in taste as well as 40 lb weight loss in 5-6 months. Dietitian consulted.
Recommend:
1. Regular, Thin Liquids
2. General aspiration precautions
3. Strategies: moisten foods well, alternate sips/bites
4. No further dysphagia tx warranted.
5. Follow with RD.
[2024-07-12 12:28] LABS: Glucose - Point of Care 237 mg/dl (70-99)
[2024-07-12] MEDS: NOVOLOG FLEXPEN-MODERATE RESISTANCE 3 UNITS SC (13:13)
--- NOTE | 2024-07-12 13:42 | CM ---
spoke to pt in room, he is prev indep, lives with his in a one story home with no steps to enter. he has a walker he uses. he denies any dc planning needs or dme's. plan is for dc to home when medically stable.
[2024-07-12] MEDS: FLUSH (NSS) 1 FLUSH IV (16:36)
[2024-07-12] MEDS: CARDIZEM 125 IV (16:36)
[2024-07-12 16:48] LABS: Glucose - Point of Care 302 mg/dl (70-99)
[2024-07-12] MEDS: NOVOLOG FLEXPEN-MODERATE RESISTANCE 7 UNITS SC (18:05)
[2024-07-12 22:11] LABS: Glucose - Point of Care 268 mg/dl (70-99)
--- NOTE | 2024-07-12 23:43 | PTCARENOTE ---
Pt. received at change of shift. Pt. seen and assessed in room. Pt. AOx3. Tele reading Afib. Pt. complaining of r hip pain, requesting PRN tylenol. BP WNL. Cardizem gtt running at 5mL/hr. No other complaints at this time. Pt. verbalizes
understanding of POC. Call aiken within reach. Continuing to monitor the pt at this time.
[2024-07-13] VITALS (10 sets, daily range): BP systolic 94–136; BP diastolic 47–74; PULSE 79; O2SAT 95; BMI 23.1
--- NOTE | 2024-07-13 03:02 | DOWNTIME ---
There was a [employer] Downtime on 06/15/2024 from 0100 to 06/15/2024 at 0252. Downtime documentation of patient's care, including medication administrations, has been reconciled in the electronic record per guidelines. Refer to the
patient's paper chart under the miscellaneous tab to see printed paper medication records and downtime forms.
--- NOTE | 2024-07-13 06:50 | W.PN.HOSP.TC ---
Today's Communication/Plan
-
Wean off Cardizem gtt
Low dose Toprol and oral Cardizem
For MRI studies , spine pathology
f/w PT recommendations
Monitor hemoglobin after starting Eliquis
f/w cardiology recommendations
Assessment / Plan
Assessment / Plan
Physical exam:
GEN: No distress, awake, Ox3, elderly and frail-appearing
HEENT: supple, anicteric, mmm
LUNGS: CTA, no wheezes/rales
CV: Irregularly irregular, S1/S2, + murmur
ABD: soft, BS+, NT/ND
EXT: No edema, clubbing or cyanosis
NEURO: Gross non-focal
SKIN: No rash, warm, dry, pink
Psych: calm
# Generalized weakness with failure to thrive due to Increasing cancer burden with worsening pul mets dz by recent PET and eval for acute medical issues
Rt Hip pain with malaise and weakness
5 cm expansile lytic destructive lesion in the lower right ilium consistent with osseous metastasis
HX metastasis in the right lateral T6 vertebral body
Suspicion for a small metastasis in the spinous process of C2 in correlation with the PET/CT from 03/02/2024.
Significant worsening of pulmonary metastasis
Underlying Lung CA
- Primary oncologist Dr Winston. Per oncology : metastatic NSCLC w/ recent progression on Keytruda, to begin Rybrevant soon
- For MRI of Thoracic and Lx spine W/wo
- Pain control
- PT/OT
- Heme Onco consulted, no contraindication to systemic Anticoagulation.
# Acute on chronic hyponatremia DDX; suspect recent diarrhea with dehydration with underlying SIADH due to
Recent Diarrhea per spouse ? ADES of Keytruda
HX chr mild hyponatremia
Improved.
# Anemia of cancer
Usually responds to transfusion as needed.
Currently he is hemodynamically stable, no indication to transfuse.
#New onset of A Fib with HR 113 vs. A tach
Recent ECHO on 07/01/24 : LVEF 55-60% with mild to moderate MR
c/w IV Cardizem, titrate to off, start oral Tx
s/p IV heparin gtt, started on Eliquis with amiodarone, low dose Toprol added.
- DCA card consulted, help appreciated
Inadequate hyperglycemic control due to CRISIS MANAGER Dexamethasone
HX T2DM
- cont . OP OHG agents
- add Low ISS
Essential HTN
-
HLD
- cont. CRISIS MANAGER Rosuvastatin
Total time spent to see the patient, examine the patient on the floor, review data and lab results, discuss treatment plan with patient, nursing staff around 55 minutes
Anticipated Discharge: > 48 hours
Subjective/Interval History
-
Date of Service: July 13, 2024
N chest pain
No sob
Objective Data
-
Labs:
Laboratory Results
07/12/24
14:30
APTT Cancelled
Vital Signs:
Vital Signs
Temp Pulse Resp BP Pulse Ox
97.9 F 93 18 126/74 94
07/13/24 03:03 07/13/24 03:03 07/13/24 03:03 07/13/24 03:03 07/13/24 03:03
I&O
07/11/24 07/12/24 07/13/24
06:59 06:59 06:59
Intake Total 894 / 894 1670 / 1670
Output Total 200 / 200 2019
Balance 694 / 694 -350 / -350
[2024-07-13] MEDS: CRESTOR 10 MG PO (07:31)
[2024-07-13] MEDS: TYLENOL 650 MG PO ×3 (07:31→22:16)
[2024-07-13] MEDS: PROTONIX 40 MG PO (07:31)
[2024-07-13] MEDS: TOPROL XL 25 MG PO ×2 (07:31→12:03)
[2024-07-13] MEDS: MICRONASE 3.75 MG PO (07:33)
[2024-07-13] MEDS: CARDURA 4 MG PO (07:34)
[2024-07-13] MEDS: ELIQUIS 5 MG PO ×2 (07:34→19:29)
[2024-07-13] MEDS: DELTASONE 10 MG PO (07:34)
[2024-07-13] MEDS: PACERONE 200 MG PO ×3 (07:34→22:13)
[2024-07-13 07:47] LABS: Glucose - Point of Care 99 mg/dl (70-99)
[2024-07-13] MEDS: NOVOLOG FLEXPEN-MODERATE RESISTANCE SC (07:47)
--- NOTE | 2024-07-13 10:40 | W.PN.CARDCBS ---
Addendum entered and electronically signed by Douglas Toledo MD 07/13/24 15:50:
I saw and examined the patient.
The Director Of Environmental Services's note was reviewed and I agree with the note.
Comment:
GEN: No distress, awake, Ox3
HEENT: supple, anicteric, mmm
LUNGS: CTA, no wheezes/rales
CV: irreg, S1/S2, 1/6 syst LSB, no gallop
ABD: soft, BS+, NT/ND
EXT: No edema
NEURO: Gross non-focal
SKIN: No rash
Plan:
Overall seems to be slowly improving. Still having sinus tachycardia with bursts of atrial tachycardia. He also has paroxysms of atrial fibrillation.
Continue Eliquis. Will increase Toprol to 50 mg daily. Continue amiodarone 200 mg p.o. 3 times daily. Hemoglobin stable at 9.2.
Watch for signs of orthostasis and hypotension.
Await results of MRI from today. Will stop Cardizem drip. Check repeat EKG.
At this point I do not think he is a candidate for ablation so we will attempt to treat him medically.
Original Note:
Today's Communication / Plan
-
Check ECG, eval QTc
Stop Cardizem gtt
Increase Toprol XL
Cont Eliquis
Impression / Plan
-
PCP: Mendel Wilkins
Customer Solutions Coordinator: Harman Russell
Oncologist: Dr. Winston
Impression:
Presents with generalized weakness, fatigue, poor appetite 07/11/2024
Newly diagnosed paroxysmal Afib with RVR, 07/11/24
New start to chronic Eliquis OAC this admission
Hyponatremia
Hyperglycemia
Ambulatory dysfunction
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
Left Lower Lobectomy
Previous treatment with immunotherapy, radiation to hip and Keytruda, last dose 05/17/2024
Paroxysmal atrial Tachycardia
Essential Hypertension
Hyperlipidemia
Diabetes Mellitus, Type II
Anemia
BPH
7-day outpatient monitor completed 06/16/2024: Predominantly sinus rhythm heart rate range 72 to 115 bpm in sinus rhythm, average 86. Frequent episodes of atrial tachycardia (~2647), longest 8 beats average 110 to 137 bpm, highest 163 bpm. Frequent
PACs 16%, rare PVCs 0.1%.
Echo 07/01/2024: EF 55 to 60% mild concentric LVH. Mild to moderate MR. Mild TR with PAP 35 mmHg. Aortic root 3.9 cm, ascending aorta 4.3 cm
Plan:
-Patient with newly diagnosed paroxysmal Afib in RVR on admission. HRs controlled with Cardizem gtt and patient converted to SR 07/12/24 and then back to Afib. He is truly paroxysmal at this point so started amiodarone 200 mg TID on 07/12/24. Patient
has received 800 mg amiodarone PO as of 07/13/24 AM.
-Check ECG 07/13/24. QTc was 489 in sinus tachycardia 07/12/24.
-Will stop Cardizem gtt 07/13/24.
-Outpatient dose of Toprol XL increased to 50 mg daily on 07/13/24
-Follow BP, patient with h/o symptomatic orthostasis
-New to Eliquis 5 mg BID (age 83, wt 68.9 kg, Cre 0.5). Will ask CM to check on cost
-TSH normal
-Patient with known stage IV metastatic lung cancer and Oncology following. MRI spine on 07/13/24 and new chemo regimen planned for outpatient using Rybrevant and Darbepoetin
-HgbA1c 7.8% and outpatient dose of glyburide has been continued
HPI 07/11/2024:
Patient is an 83-year-old male with past medical history significant for stage IV lung cancer status post left lower lobe resection September 2021 with recurrence and bone mets to right hip, hypertension, hyperlipidemia, diabetes and atrial
tachycardia on beta-wendy who presents to emergency department with progressive weakness, fatigue, malaise, poor appetite. Patient has been undergoing treatment for recurrent stage IV lung cancer with last treatment 05/17/2024. Treatment had been
placed on hold due to fatigue and weakness. He has received several fluid boluses and iron infusions but not a blood transfusion per family. He was supposed to see oncology today however due to worsening weakness family brought him to emergency
department. He was noted to be in atrial fibrillation with rapid ventricular response. Also found to be hyponatremic with sodium of 129 and hyperglycemic with glucose of 370. In general patient has been physically declining with worsening
weakness and ambulatory dysfunction. Family reports his legs have been giving out when he attempts to walk. Fortunately he has not suffered any serious falls or injuries. He has very poor appetite and oral hydration. He reports to me he just has
no desire to eat. He also complains of difficulty swallowing food. Patient denies chest pain, shortness of breath, palpitations or feeling of his heart being fast or irregular.
Progress Note - Customer Solutions Coordinator
Subjective
Date of Service: July 13, 2024
He just got back from MRI, no palpitations
Objective
Labs:
07/12/24 07:51
07/12/24 07:51
Labs
Hgb 9.2 g/dL (13.0-18.0) L 07/12/24 07:51
Hct 28.9 % (39.0-52.0) L 07/12/24 07:51
Plt Count 221 10^3/uL (130-400) 07/12/24 07:51
APTT Cancelled 07/12/24 14:30
Sodium 135 mmol/L (135-145) 07/12/24 07:51
Potassium 3.5 mmol/L (3.5-5.1) 07/12/24 07:51
BUN 19 mg/dl (9-20) 07/12/24 07:51
Creatinine 0.5 mg/dL (0.7-1.3) L 07/12/24 07:51
Glucose 149 mg/dl (70-99) H 07/12/24 07:51
Vital Signs and I&O:
Vital Signs
Temp Pulse Resp BP Pulse Ox
98.1 F 95 18 136/70 99
07/13/24 08:04 07/13/24 07:31 07/13/24 08:04 07/13/24 07:31 07/13/24 09:09
Vital Signs
Temp Pulse Resp BP Pulse Ox
98.1 F 95 18 136/70 99
07/13/24 08:04 07/13/24 07:31 07/13/24 08:04 07/13/24 07:31 07/13/24 09:09
Intake & Output
07/11/24 07/12/24 07/13/24 07/14/24
06:59 06:59 06:59 06:59
Intake Total 894 / 894 1670 / 1670
Output Total 200 / 200 2019
Balance 694 / 694 -350 / -350
Physical Exam
Physical Exam
GEN: AAOx3
HEENT: MMM
LUNGS: No audible wheeze
CV: SR on tele
ABD: ND
EXT: No edema
NEURO: Gross non-focal
SKIN: No rash
[2024-07-13 13:31] LABS: Glucose - Point of Care 243 mg/dl (70-99)
[2024-07-13] MEDS: NOVOLOG FLEXPEN-MODERATE RESISTANCE 3 UNITS SC (13:32)
--- NOTE | 2024-07-13 14:47 | PTCARENOTE ---
Pt received in bed @ 0700. PRN Tylenol 650mg PO administered for intermittent 8/10 right hip pain per patient request. SaO2 97%. Diminished breath sounds right absent left base. Sinus tach with PAC's/A Fib on groundwater monitoring technician. Received on Cardizem
gtt 5mg/hr. HR 80s - 110s. Metoprolol 25mg PO given x2 for total dose of 50mg PO. HR observed 70s - 100s. MRI of Lumbar and Thoracic spine completed. (L) Sub Q Port accessed. Assist x1 with rolling walker; minimal assistance required.
--- NOTE | 2024-07-13 16:36 | CM ---
CM following for DC planning needs.
Spoke w/ patient, spouse and other family member at bedside.
Discussed PT recommendation for home-care with pt., spouse and both are in agreement and prefer [facility].
Referral submitted to [facility], awaiting response.
Family also requesting a hospital bed at time of DC. Getting out of bed requires assist of spouse due to 'tumor on his lung' and this is proving difficult.
I have asked MD for RX so that I can place order to DME company.
DC plan is anticipated for home w/ VN + hospital bed.
Will cont. to follow.
--- NOTE | 2024-07-13 16:41 | CM ---
Priced Eliquis thru insurance, [employer]- [phone]; estimated co pay for Eliquis is $20/30 d supply.
I can provide a free 30 d coupon and will place in chart.
[2024-07-13 17:35] LABS: Glucose - Point of Care 274 mg/dl (70-99)
[2024-07-13] MEDS: NOVOLOG FLEXPEN-MODERATE RESISTANCE 5 UNITS SC (17:37)
[2024-07-13 22:06] LABS: Glucose - Point of Care 166 mg/dl (70-99)
--- NOTE | 2024-07-13 22:23 | PTCARENOTE ---
Pt. received at change of shift. Pt. seen and assessed in room. Pt. AOx3 with no complaints of pain at the right hip. VS WNL. Tele reading Afib in the 80s. Patient verbalizes understanding of plan of care for the night. Call aiken within reach.
Continuing to monitor at this time.
[2024-07-14 02:59] VITALS: BP 138/70
[2024-07-14] MEDS: TYLENOL 650 MG PO ×2 (03:04→08:10)
[2024-07-14 03:06] VITALS: BMI 22.9
--- NOTE | 2024-07-14 06:45 | W.PN.HOSP.TC ---
Today's Communication/Plan
-
Discharge
Assessment / Plan
Assessment / Plan
Physical exam:
GEN: No distress, awake, Ox3, elderly and frail-appearing
HEENT: supple, anicteric, mmm
LUNGS: CTA, no wheezes/rales
CV: Irregularly irregular, S1/S2, + murmur
ABD: soft, BS+, NT/ND
EXT: No edema, clubbing or cyanosis
NEURO: Gross non-focal
SKIN: No rash, warm, dry, pink
Psych: calm
# Generalized weakness with failure to thrive due to Increasing cancer burden with worsening pul mets dz by recent PET and eval for acute medical issues
Rt Hip pain with malaise and weakness , MRI of right hip in April 2024 showed metastatic disease.
5 cm expansile lytic destructive lesion in the lower right ilium consistent with osseous metastasis
HX metastasis in the right lateral T6 vertebral body
Suspicion for a small metastasis in the spinous process of C2 in correlation with the PET/CT from 03/02/2024.
Significant worsening of pulmonary metastasis
Underlying Lung CA
- Primary oncologist Dr Winston. Per oncology : metastatic NSCLC w/ recent progression on Keytruda, to begin Rybrevant soon
- MRI of Thoracic and Lx spine W/wo showed moderate spinal canal stenosis at T8-9, no metastatic disease.
- Pain control with Tylenol and Tramadol.
- PT/OT
- Heme Onco consulted, no contraindication to systemic Anticoagulation.
# Acute on chronic hyponatremia DDX; suspect recent diarrhea with dehydration with underlying SIADH due to
Recent Diarrhea per spouse ? ADES of Keytruda
HX chr mild hyponatremia
Improved.
# Anemia of cancer
Usually responds to transfusion as needed.
Currently he is hemodynamically stable, no indication to transfuse.
#New onset of A Fib with HR 113 vs. A tach
Recent ECHO on 07/01/24 : LVEF 55-60% with mild to moderate MR
HR is accetable, c/w Amiodarone and Toprol.
s/p IV Cardizem.
s/p IV heparin gtt, started on Eliquis with amiodarone, low dose Toprol added.
- DCA card consulted, help appreciated
Inadequate hyperglycemic control due to MEDICAL RECORD RETRIEVAL SPECIALIST Dexamethasone
HX T2DM
- cont . OP OHG agents
- add Low ISS
Essential HTN
-
HLD
- cont. MEDICAL RECORD RETRIEVAL SPECIALIST Rosuvastatin
Total discharge time spent to see the patient, examine the patient on the floor, review data and lab results, discuss discharge plan with patient, nursing staff around 65 minutes
Anticipated Discharge: Today
Subjective/Interval History
-
Date of Service: July 14, 2024
No chest pain
No sob
Objective Data
-
Vital Signs:
Vital Signs
Temp Pulse Resp BP Pulse Ox
98.2 F 90 20 138/70 96
07/14/24 03:08 07/14/24 04:00 07/13/24 22:55 07/14/24 02:59 07/13/24 22:55
I&O
07/12/24 07/13/24 07/14/24
06:59 06:59 06:59
Intake Total 894 / 894 1670 / 1670 975 / 975
Output Total 200 / 200 2019
Balance 694 / 694 -350 / -350 975 / 975
[2024-07-14] MEDS: ULTRAM 50 MG PO (08:10)
[2024-07-14 08:21] VITALS: BP 132/79
--- NOTE | 2024-07-14 08:27 | W.PN.CARDCBS ---
Addendum entered and electronically signed by Harman Russell MD 07/14/24 09:19:
83-year-old man with lung cancer cancer metastatic to right hip status post left lower lobe lobectomy and hip XRT, now with new onset atrial fibrillation
PMH/PSH/FH/SH-reviewed
Allergies: None
Outpatient meds: Reviewed
Current medications: Doxazosin, pantoprazole, prednisone 10, rosuvastatin 10 mg daily,, insulin, glipizide, amiodarone 200 mg 3 times daily, apixaban 5 twice daily, metoprolol succinate 50 mg a day
ROS: Reviewed
138/70, down to 94/47, pulse high 90s to 120, sinus with short runs of atrial tach
Head neck exam unremarkable, lungs are clear, tachycardic and irregular, no obvious murmurs abdomen benign JVD okay, extremities without clubbing cyanosis or edema distal pulses palpable
Chest x-ray multiple nodules, possible interstitial infiltrates, cardiomegaly
No labs today, hemoglobin was 9.2 on the , BUN and creatinine were 19 and 0.5, ALT 65 AST 55, potassium 3.5 and sodium 135 creatinine 0.5
Impression:
Presents with generalized weakness, fatigue, poor appetite 07/11/2024
Newly diagnosed paroxysmal Afib with RVR, 07/11/24
New start to chronic Eliquis OAC this admission
Hyponatremia
Hyperglycemia
Ambulatory dysfunction
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
Left Lower Lobectomy
Previous treatment with immunotherapy, radiation to hip and Keytruda, last dose 4Paroxysmal atrial Tachycardia
Essential Hypertension
Hyperlipidemia
Diabetes Mellitus, Type II
Anemia
BPH
Plan:
He appears stable from a cardiac standpoint. He is at some risk for atrial fibrillation recurrence that will diminish as amiodarone is continued, but I do not object to discharge today.
Recommended cardiac medications at discharge:
Doxazosin 4 mg a day
Rosuvastatin 10 mg a day (optional given underlying diagnoses)
Amiodarone 200 mg twice daily x 4 weeks, then 200 mg a day
Apixaban 5 mg twice daily
Metoprolol ER 50 mg daily
We will arrange for outpatient follow-up
Original Note:
Today's Communication / Plan
-
Amiodarone 200 mg BID for 1 month then once daily thereafter upon d/c
Cont Eliquis and appreciate help of CM on checking cost, $20/month
Cardiology follow up arranged
Impression / Plan
-
PCP: Mendel Wilkins
[employer]: Harman Russell
Oncologist: Dr. Winston
Impression:
Presents with generalized weakness, fatigue, poor appetite 07/11/2024
Newly diagnosed paroxysmal Afib with RVR, 07/11/24
New start to chronic Eliquis OAC this admission
Hyponatremia
Hyperglycemia
Ambulatory dysfunction
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
Left Lower Lobectomy
Previous treatment with immunotherapy, radiation to hip and Keytruda, last dose 05/17/2024
Paroxysmal atrial Tachycardia
Essential Hypertension
Hyperlipidemia
Diabetes Mellitus, Type II
Anemia
BPH
7-day outpatient monitor completed 06/16/2024: Predominantly sinus rhythm heart rate range 72 to 115 bpm in sinus rhythm, average 86. Frequent episodes of atrial tachycardia (~2647), longest 8 beats average 110 to 137 bpm, highest 163 bpm. Frequent
PACs 16%, rare PVCs 0.1%.
Echo 07/01/2024: EF 55 to 60% mild concentric LVH. Mild to moderate MR. Mild TR with PAP 35 mmHg. Aortic root 3.9 cm, ascending aorta 4.3 cm
Plan:
-Patient continues with paroxysms of Afib and is currently in Afib 07/14/24 AM. Cardizem gtt stopped 07/13/24.
-Outpatient dose of Toprol XL increased to 50 mg daily on 07/13/24.
-New to amiodarone this admission and has received a 1.2 gram load as of 07/14/24 AM. Will continue with amiodarone 200 mg BID for 1 month and then reduce to once daily upon d/c to home
-Also new to Eliquis 5 mg BID (age 83, wt 68.9 kg, Cre 0.5). Appreciate help of CM in checking cost, it will be $20/month
-Patient with known stage IV metastatic lung cancer and Oncology following. MRI spine on 07/13/24 and new chemo regimen planned for outpatient using Rybrevant and Darbepoetin
-HgbA1c 7.8% and outpatient dose of glyburide has been continued
-Will arrange for cardiology follow up
[facility] 07/11/2024:
Patient is an 83-year-old male with past medical history significant for stage IV lung cancer status post left lower lobe resection September 2021 with recurrence and bone mets to right hip, hypertension, hyperlipidemia, diabetes and atrial
tachycardia on beta-wendy who presents to emergency department with progressive weakness, fatigue, malaise, poor appetite. Patient has been undergoing treatment for recurrent stage IV lung cancer with last treatment 05/17/2024. Treatment had been
placed on hold due to fatigue and weakness. He has received several fluid boluses and iron infusions but not a blood transfusion per family. He was supposed to see oncology today however due to worsening weakness family brought him to emergency
department. He was noted to be in atrial fibrillation with rapid ventricular response. Also found to be hyponatremic with sodium of 129 and hyperglycemic with glucose of 370. In general patient has been physically declining with worsening
weakness and ambulatory dysfunction. Family reports his legs have been giving out when he attempts to walk. Fortunately he has not suffered any serious falls or injuries. He has very poor appetite and oral hydration. He reports to me he just has
no desire to eat. He also complains of difficulty swallowing food. Patient denies chest pain, shortness of breath, palpitations or feeling of his heart being fast or irregular.
Progress Note - [employer]
Subjective
Date of Service: July 14, 2024
He has hip pain, denies palpitations
Objective
Labs:
07/12/24 07:51
07/12/24 07:51
Labs
Hgb 9.2 g/dL (13.0-18.0) L 07/12/24 07:51
Hct 28.9 % (39.0-52.0) L 07/12/24 07:51
Plt Count 221 10^3/uL (130-400) 07/12/24 07:51
APTT Cancelled 07/12/24 14:30
Sodium 135 mmol/L (135-145) 07/12/24 07:51
Potassium 3.5 mmol/L (3.5-5.1) 07/12/24 07:51
BUN 19 mg/dl (9-20) 07/12/24 07:51
Creatinine 0.5 mg/dL (0.7-1.3) L 07/12/24 07:51
Glucose 149 mg/dl (70-99) H 07/12/24 07:51
Vital Signs and I&O:
Vital Signs
Temp Pulse Resp BP Pulse Ox
98.3 F 90 20 138/70 98
07/14/24 08:19 07/14/24 04:00 07/14/24 08:19 07/14/24 02:59 07/14/24 08:19
Vital Signs
Temp Pulse Resp BP Pulse Ox
98.3 F 90 20 138/70 98
07/14/24 08:19 07/14/24 04:00 07/14/24 08:19 07/14/24 02:59 07/14/24 08:19
Intake & Output
07/12/24 07/13/24 07/14/24 07/15/24
06:59 06:59 06:59 06:59
Intake Total 894 / 894 1670 / 1670 975 / 975
Output Total 200 / 200 2019 / 2019
Balance 694 / 694 -350 / -350 975 / 975
Physical Exam
Physical Exam
GEN: AAOx3
HEENT: MMM
LUNGS: No audible wheeze
CV: Afib on tele
ABD: ND
EXT: No edema
NEURO: Gross non-focal
SKIN: No rash
[2024-07-14 09:12] LABS: Glucose - Point of Care 90 mg/dl (70-99)
--- NOTE | 2024-07-14 09:38 | W.PN.ONC ---
Today's Communication / Plan
-
MRI of the thoracic and lumbar spine without evidence of malignant abnormality causing discomfort
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
Follow-up in the office to begin second line therapy
Impression
Impression
Weakness, fatigue
Right ileal metastases causing discomfort
Afib w/ RVR
Metastatic NSCLC w/ recent progression on Keytruda, to begin Rybrevant soon
Anemia of malignancy (no iron deficiency, ferritin 1345 on 05/26/24)
Plan
Plan
No heme/onc contraindications to anticoagulation. Anemia is not from bleeding/iron def.
Further treatment for lung cancer (Rybrevant) once stable from cardiology standpoint
Will add Aranesp as outpatient for anemia
Will follow along peripherally, please call w/ questions
Subjective/Objective
Subjective/Objective
Patient continues to complain of pain in the right hip which is nonweightbearing but exacerbated by direct pressure.
Vital Signs:
Vital Signs
Temp Pulse Resp BP Pulse Ox
98.3 F 90 20 138/70 98
07/14/24 08:19 07/14/24 04:00 07/14/24 08:19 07/14/24 02:59 07/14/24 08:19
PE: Unchanged
Lab Results:
Laboratory Data
WBC 9.3 10^3/uL (4.8-10.8) 07/12/24 07:51
Hgb 9.2 g/dL (13.0-18.0) L 07/12/24 07:51
Plt Count 221 10^3/uL (130-400) 07/12/24 07:51
APTT Cancelled 07/12/24 14:30
eGFR > 60.00 07/12/24 07:51
[2024-07-14 10:25] VITALS: BP 107/60
[2024-07-14] MEDS: NOVOLOG FLEXPEN-MODERATE RESISTANCE SC ×2 (10:26→13:41)
[2024-07-14] MEDS: MICRONASE 3.75 MG PO (10:28)
[2024-07-14] MEDS: TOPROL XL 50 MG PO (10:29)
[2024-07-14] MEDS: ELIQUIS 5 MG PO (10:29)
[2024-07-14] MEDS: DELTASONE 10 MG PO (10:29)
[2024-07-14] MEDS: CARDURA 4 MG PO (10:29)
[2024-07-14] MEDS: PROTONIX 40 MG PO (10:29)
[2024-07-14] MEDS: CRESTOR 10 MG PO (10:29)
[2024-07-14] MEDS: PACERONE 200 MG PO (10:29)
--- NOTE | 2024-07-14 11:24 | CM ---
CM following for DC planning needs.
Plan for DC to home today.
Referral made to [facility], accepted.
Referral made to [facility] for hospital bed. Hospital bed expected to be delivered on Thursday, 07/15. This was discussed w/ patient and spouse and they are in agreement.
Plan is home w/ [facility] + Hospital bed.
--- NOTE | 2024-07-14 11:27 | W.DCSUMMARY ---
Discharge Summary
Discharge Data
Date of Admission: 07/11/24
Date of Discharge: 07/14/24
-
Pending Results: No
Hospital Course
83 years old male presented with fatigue and weakness. Patient had a chronic right hip pain. Patient was found in atrial fibrillation with rapid ventricular response. Patient has history of stage IV lung cancer with progression on immunotherapy.
Patient was started on intravenous Cardizem and intravenous heparin. He was evaluated by web content editor. He was started on oral rate control medication including amiodarone. Patient has anemia of malignancy. Oncology was consulted and there was no
contraindication to use of Eliquis. Patient was started on Eliquis. Patient had mild worsening of hyponatremia that later improved with IV hydration. He was maintained on a regular diet. He had MRI of the thoracic and lumbar spine that did not
show metastatic disease. Patient has history of right ileal 5 cm destructive mass that was treated at [facility]. Patient was advised to continue taking Tylenol and tramadol as needed. He was followed by oncology and plan was to discuss
further options for treatment in outpatient setting. Patient was evaluated by physical therapy and recommended home health services. Hospital bed was ordered. Patient was discharged home in a stable condition.
Discharge Plan
-
Patient Disposition: Home with Home Care
Discharge Diagnosis/Procedures: Newly diagnosed paroxysmal atrial fibrillation
Stated on new cardiac medications:
Amiodarone 200 mg twice a day for one month then once a day
Eliquis( blood thinner)
metoprolol
Diet: As tolerated
Referrals:
[facility] [Outside]
[facility] [Outside] (They will call you to deliver a hospital bed. I expect the bed to be delivered by Thursday, 07/15. Please call them if you do not hear from them by then.)
Mendel Wilkins DO [Family Provider] - in one to two weeks
Harman Russell MD [Active] - 07/28/24 9:20 am (You have an appt to see Dr. Russell's physician program support assistant, Stormy, at the [facility] on 07/28/24 at 9:20 AM. Please call [phone] if you need to reschedule.)
Additional Discharge Medication Instructions: -Start taking amiodarone 200 mg twice a day for 1 month (until 08/13/24) and then reduce to 200 mg once daily thereafter. Separate prescriptions for the twice daily dosing for 30 days and the once daily
dosing thereafter were sent to your local pharmacy.
-Start taking Eliquis 5 mg twice a day.
-Increase your dose of Toprol XL (metoprolol succinate) to 50 mg once a day.
Prescriptions:
New
Eliquis 5 mg Tablet
5 mg PO BID Qty: 60 11RF
amiodarone 200 mg Tablet
200 mg PO BID Qty: 60 0RF
metoprolol succinate 50 mg Tablet Extended Release 24 Hr
50 mg PO DAILY Qty: 30 11RF
amiodarone 200 mg tablet
200 mg PO DAILY Qty: 30 11RF
Continued
glyburide 2.5 MG tablet
3.75 mg PO DAILY
doxazosin 4 MG tablet
4 mg PO DAILY
rosuvastatin 10 MG tablet
10 mg PO DAILY
Centrum Men 1 EACH tablet
1 ea PO DAILY
PreserVision AREDS-2 250-90-40-1 mg Capsule
1 tab PO DAILY
selenium 200 mcg Tablet
200 mcg PO DAILY
prednisone 10 mg Tablet
10 mg PO DAILY
omeprazole 40 mg Capsule,Delayed Release(Dr/Ec)
40 mg PO DAILY
tramadol 50 mg Tablet
50 mg PO TIDPRN PRN (Reason: moderate pain)
acetaminophen [Tylenol Extra Strength] 500 mg Tablet
1,000 mg PO Q6HPRN PRN (Reason: mild pain)
hydrocortisone acetate [Anusol-HC] 25 mg suppository
25 mg [place] DAILYPRN PRN (Reason: hemorrhoids)
Discontinued
metoprolol succinate 50 mg Tablet Extended Release 24 Hr
25 mg PO DAILY
Discharge Orders:
Discharge Patient (As Directed); Ordered 07/14/24
Ordered By: Zonia Norman
Care Plan Goals
Care Plan Goals:
Problem: Readiness for enhanced knowledge related to diagnosis and treatment plan
Goal: Understand your diagnosis and treatment plan needs, including medications if applicable.
Instructions: Know your diagnosis, underlying causes and treatment plan options, including medications if applicable. Consult with your health care team to learn about your diagnosis and treatment plan, including medications if applicable.
Discharge Date and Time
Print Language: GUINEAN
[2024-07-14 11:55] VITALS: BP 86/42
[2024-07-14 11:59] VITALS: BP 85/59
[2024-07-14 13:26] VITALS: BP 96/53
[2024-07-14 13:30] LABS: Glucose - Point of Care 137 mg/dl (70-99)
== END 2024-07-14 15:25 | disposition home health service (06) | DRG 309 ==
LOC: IVU 16:30
PROVIDERS: Physician Assistant Medical; ADMITTING PHYSICIAN Internal Medicine; ATTENDING PHYSICIAN Internal Medicine; EMERGENCY PHYSICIAN Emergency Medicine; FAMILY PHYSICIAN Family Medicine; OTHER PHYSICIAN Internal Medicine Hematology & Oncology; OTHER PHYSICIAN Internal Medicine Interventional Cardiology
DX: I48.0 Paroxysmal atrial fibrillation (principal); C34.91 Malignant neoplasm of unspecified part of right bronchus or lung; C78.01 Secondary malignant neoplasm of right lung; C79.51 Secondary malignant neoplasm of bone; E22.2 Syndrome of inappropriate secretion of antidiuretic hormone; C78.02 Secondary malignant neoplasm of left lung; Z66 Do not resuscitate; D63.0 Anemia in neoplastic disease; E78.00 Pure hypercholesterolemia, unspecified; I10 Essential (primary) hypertension; N40.0 Benign prostatic hyperplasia without lower urinary tract symptoms; E86.0 Dehydration; R62.7 Adult failure to thrive; E11.65 Type 2 diabetes mellitus with hyperglycemia; D72.829 Elevated white blood cell count, unspecified; G89.29 Other chronic pain; Z90.2 Acquired absence of lung [part of]; Z96.642 Presence of left artificial hip joint; Z79.899 Other long term (current) drug therapy; Z79.84 Long term (current) use of oral hypoglycemic drugs; Z79.52 Long term (current) use of systemic steroids
CPT/HCPCS: 70450; 71046; 72157; 72158; 80053; 81003; 82728; 82962; 83036; 83540; 83550; 83735; 83935; 84100; 84300; 84443; 85025; 85027; 85730; 92610; 93005; 96360; 97116; 97163; 97166; 97535; 99285; A9575

== ENCOUNTER → 2024-07-19 16:14 | Outpatient (REF) | payer MEDICARE, BC, SELFPAY ==
[2024-07-19 15:16] LABS: % Basophils 0.1 % (0-2); % Eosinophils 0.8 % (0-6); % Immature Granulocytes 0.3 % (0-0.5); % Lymphocytes 12.8 % (20.5-51.1); % Monocytes 5.9 % (1.7-9.3); % Neutrophils 80.1 % (42.2-75.2); Absolute Eosinophils 0.1 10^3/uL (0-0.7); Absolute Lymphocytes 1.7 10^3/uL (1.2-3.4); Absolute Monocytes 0.8 10^3/uL (0.1-0.6); Absolute Neutrophils 10.7 10^3/uL (1.4-6.5); Hematocrit 29.6 % (39.0-52.0); Hemoglobin 9.5 g/dL (13.0-18.0); Mean Corp Hgb Conc. 32.1 g/dL (33.0-37.0); Mean Corpuscular Hgb 26.8 pg (27.0-31.0); Mean Corpuscular Volume 83.6 fL (80.0-94.0); Mean Platelet Volume 9.1 fL (7.4-10.4); Platelet Count 245 10^3/uL (130-400); Red Blood Cell Count 3.54 10^6/uL (4.70-6.10); White Blood Cell Count 13.3 10^3/uL (4.8-10.8)
[2024-07-19 16:23] LABS: ALT (SGPT) 32 U/L (0-50); AST (SGOT) 32 U/L (17-59); Albumin 2.9 g/dl (3.5-5.0); Alkaline Phosphatase 217 U/L (38-126); Blood Urea Nitrogen 20 mg/dl (9-20); Calcium 8.9 mg/dl (8.4-10.2); Carbon Dioxide 25 mmol/L (22-30); Chloride 89 mmol/L (98-107); Direct Bilirubin 0.3 mg/dl (0.0-0.4); Glucose 116 mg/dl (70-99); Potassium 3.7 mmol/L (3.5-5.1); Sodium 129 mmol/L (135-145); Total Bilirubin 0.8 mg/dl (0.2-1.3); Total Protein 5.6 g/dl (6.3-8.2); eGFR > 60.00
== END ==
LOC: OIDL 16:14
PROVIDERS: ATTENDING PHYSICIAN Internal Medicine Hematology & Oncology
DX: C34.32 Malignant neoplasm of lower lobe, left bronchus or lung (principal)
CPT/HCPCS: 80053; 82248; 84100; 85025

== ENCOUNTER → 2024-07-26 11:17 | Outpatient (REF) | payer MEDICARE, BC, SELFPAY ==
[2024-07-26 11:10] VITALS: BP 132/63; BP_SYST 76
--- NOTE | 2024-07-26 12:03 | PTCARENOTE ---
IRAD note: patient was seen by Dr. Velez. Left chest port site examined by Dr. Velez. site with little redness and scabbed but no opened area noted at the site. Port is ok to use per Dr. Velez. no interventions needed at this time.
Rosie to contact Dr. Winston regarding this. Family ( ) notified. D/C home.
== END ==
LOC: RADI 11:17
PROVIDERS: ATTENDING PHYSICIAN Internal Medicine Hematology & Oncology
DX: Z45.2 Encounter for adjustment and management of vascular access device (principal); C34.32 Malignant neoplasm of lower lobe, left bronchus or lung

== ENCOUNTER → 2024-07-28 14:22 | Outpatient (REF) | payer MEDICARE, BC, SELFPAY ==
[2024-07-28 14:44] LABS: % Basophils 0.1 % (0-2); % Immature Granulocytes 0.9 % (0-0.5); % Lymphocytes 5.8 % (20.5-51.1); % Neutrophils 88.2 % (42.2-75.2); Absolute Immature Granulocytes 0.1 10^3/uL (0-0.05); Absolute Lymphocytes 0.7 10^3/uL (1.2-3.4); Absolute Monocytes 0.6 10^3/uL (0.1-0.6); Absolute Neutrophils 10.3 10^3/uL (1.4-6.5); Hematocrit 29.4 % (39.0-52.0); Hemoglobin 9.3 g/dL (13.0-18.0); Mean Corp Hgb Conc. 31.6 g/dL (33.0-37.0); Mean Corpuscular Hgb 25.6 pg (27.0-31.0); Mean Platelet Volume 9.7 fL (7.4-10.4); Nucleated Red Blood Cells % 0 % (-); Platelet Count 236 10^3/uL (130-400); Red Blood Cell Count 3.63 10^6/uL (4.70-6.10); Red Cell Dist. Width 18.6 % (11.5-14.5); White Blood Cell Count 11.6 10^3/uL (4.8-10.8)
[2024-07-28 15:12] LABS: ALT (SGPT) 57 U/L (0-50); AST (SGOT) 21 U/L (17-59); Albumin 2.7 g/dl (3.5-5.0); Alkaline Phosphatase 219 U/L (38-126); Blood Urea Nitrogen 19 mg/dl (9-20); Calcium 8.6 mg/dl (8.4-10.2); Carbon Dioxide 27 mmol/L (22-30); Chloride 93 mmol/L (98-107); Glucose 193 mg/dl (70-99); Potassium 3.5 mmol/L (3.5-5.1); Sodium 131 mmol/L (135-145); Total Bilirubin 0.9 mg/dl (0.2-1.3); Total Protein 5.2 g/dl (6.3-8.2); eGFR > 60.00
== END ==
LOC: OIDL 14:22
PROVIDERS: ATTENDING PHYSICIAN Internal Medicine Hematology & Oncology
DX: C34.32 Malignant neoplasm of lower lobe, left bronchus or lung (principal); R53.82 Chronic fatigue, unspecified; G89.3 Neoplasm related pain (acute) (chronic)
CPT/HCPCS: 80053; 85025

== ENCOUNTER 2025-01-20 08:42 | Outpatient (RCR) | payer MEDICARE, BC, SELFPAY ==
[2024-07-25 09:00] LABS: % Basophils 0.2 % (0-2); % Eosinophils 0.1 % (0-6); % Immature Granulocytes 0.8 % (0-0.5); % Monocytes 3.9 % (1.7-9.3); Absolute Immature Granulocytes 0.1 10^3/uL (0-0.05); Absolute Lymphocytes 0.5 10^3/uL (1.2-3.4); Absolute Monocytes 0.7 10^3/uL (0.1-0.6); Absolute Neutrophils 15.7 10^3/uL (1.4-6.5); Hematocrit 29.1 % (39.0-52.0); Hemoglobin 9.4 g/dL (13.0-18.0); Mean Corp Hgb Conc. 32.3 g/dL (33.0-37.0); Mean Corpuscular Hgb 25.8 pg (27.0-31.0); Mean Corpuscular Volume 79.9 fL (80.0-94.0); Mean Platelet Volume 8.9 fL (7.4-10.4); Nucleated Red Blood Cells % 0 % (-); Platelet Count 250 10^3/uL (130-400); Red Blood Cell Count 3.64 10^6/uL (4.70-6.10); Red Cell Dist. Width 18.3 % (11.5-14.5); White Blood Cell Count 17.1 10^3/uL (4.8-10.8)
[2024-07-25 09:13] LABS: ALT (SGPT) 107 U/L (0-50); AST (SGOT) 100 U/L (17-59); Albumin 3.1 g/dl (3.5-5.0); Alkaline Phosphatase 347 U/L (38-126); Blood Urea Nitrogen 26 mg/dl (9-20); Calcium 9.2 mg/dl (8.4-10.2); Carbon Dioxide 26 mmol/L (22-30); Chloride 89 mmol/L (98-107); Glucose 78 mg/dl (70-99); Iron 31 ug/dl (49-181); Potassium 3.8 mmol/L (3.5-5.1); Sodium 131 mmol/L (135-145); Total Bilirubin 1.3 mg/dl (0.2-1.3); eGFR > 60.00
== END 2025-01-23 23:59 | disposition home or self-care (01) ==
LOC: OID 08:42
PROVIDERS: ATTENDING PHYSICIAN Internal Medicine Hematology & Oncology
DX: C34.32 Malignant neoplasm of lower lobe, left bronchus or lung (principal); R53.82 Chronic fatigue, unspecified; G89.3 Neoplasm related pain (acute) (chronic); D64.81 Anemia due to antineoplastic chemotherapy; D50.9 Iron deficiency anemia, unspecified
CPT/HCPCS: 80053; 82565; 82728; 83540; 85025